=== PATIENT | male | born 1995 | race Caucasian/White ===

== ENCOUNTER 2024-10-03 01:47 | Emergency (ER) | payer OTHER, SELFPAY ==
[2024-10-03] VITALS (22 sets, daily range): BP systolic 110–146; BP diastolic 72–99; BMI 33.3
--- NOTE | 2024-10-03 02:23 | ED.GENMED ---
History of Present Illness
General
Chief Complaint: Substance Abuse
Source: patient
Exam Limitations: clinical condition
Time Seen by Provider: 10/03/24 01:59
Nursing documentation reviewed up to this point in time: agreed with
History of Present Illness
History of Present Illness:
29-year-old male brought in by EMS after doing fentanyl this evening. Found by his father in his bedroom unresponsive with a needle in his arm. Patient was arousable with painful stimuli. They called 911. Parents told EMS that patient is no
longer welcome in their home. Patient refused interventions from EMS. Upon arrival patient was somnolent but arousable to voice. Patient initially hesitant to consider rehab, 'stating that rehab does not work he has done it many times '
Past History
Past History
ED Past Medical History: GERD, Psychiatric (Anxiety/depression/substance abuse) and Other (Substance use disorder)
ED Past Surgical History: None
Social History
Tobacco: Smoker
Alcohol: None
Drug: Narcotics and IVDA
Personal: Single
Living: with family
Employment: Not employed
Family History
Family History: Other (Noncontributory)
Review of Systems
Review of Systems
Allergies reviewed?: Yes
All Other Systems: ROS reviewed and negative except as documented in HPI and ROS
Constitutional: Reports fatigue
EENT: Reports no symptoms
Respiratory: Reports no symptoms
Cardiac: Reports no symptoms
ABD/GI: Reports no symptoms
: Reports no symptoms
Musculoskeletal: Reports no symptoms
Skin: Reports no symptoms
Neurological: Reports no symptoms
Endocrine: Reports no symptoms
Hematologic/Lymphatic: Reports no symptoms
Psychiatric: Reports anxiety
Phy Exam
General Physical Exam
General Presentation: well appearing and no apparent distress
General age: appears older than age
General Skin: warm and dry
General Habitus: normal
General Mental: appears intoxicated
General Hydration: appears well hydrated
ENT Exam
ENT Exam: EOMI, pharynx normal, neck supple and normocephalic
Eye Exam
Eye Exam: PERRL, cornea clear and conjunctiva normal
Cardiovascular Exam
Cardiovascular Exam: regular rate/rhythm, no edema, no murmur and normal peripheral pulses
Pulmonary Exam
Pulmonary Exam: lungs clear, no respiratory distress, no rales, no crackles, no rhonchi, no stridor, no wheezing and no cough
Gastrointestinal Exam
Gastrointestinal Exam: normal bowel sounds, non tender, soft, no organomegaly, no pulsatile mass and non distended
Neurological Exam
Neurological Exam: alert, oriented x3, no motor deficits and speech normal
Musculoskeletal Exam
Musculoskeletal Exam: full ROM and no edema
Skin Exam
Skin Exam: normal color, warm/dry, no rash and no petechia
Psychiatric Exam
Psychiatric Exam: normal mood/affect
Course
Orders/Labs/Results
Orders:
Orders
10/03/24 02:32
0.9% Sodium Chloride 1000 ml [Nss] 1,000 ml IV BOLUS
10/03/24 03:00
CMP [Comprehensive Metabolic Panel] Urgent
Complete Blood Count/With Diff Urgent
Abnormal Lab Results
10/03/24
03:00
MPV 10.5 H fL
(7.4-10.4)
Abs Immat Gran (auto) 0.1 H 10^3/uL
(0-0.05)
Immature Gran % 0.6 H %
(0-0.5)
Lymphocytes % 17.8 L %
(20.5-51.1)
Glucose 105 H mg/dl
(70-99)
10/03/24 03:00
10/03/24 03:00
Vital Signs
Initial and Last Documented VS:
Initial Vital Signs
BP
136/91
10/03/24 01:51
Last Documented Vital Signs
Temp Pulse Resp BP Pulse Ox
98.3 F 48 12 110/90 99
10/03/24 01:53 10/03/24 04:00 10/03/24 04:00 10/03/24 04:00 10/03/24 04:00
*Critical Care Note
Total Time (30-74mins, 75-104mins- exclusive of procedures): Not Applicable
Update Note
Update Note:
10/03/2024 0246 AM: Patient currently being seen by Flaco.
ED Attending Note
-
Portions of this chart may have been created with voice recognition software.� Occasional wrong word or��sound alike� substitutions may have occurred due to the inherent limitations of voice recognition software.
Discharge Plan
Departure
Patient Disposition: Acute Rehab Facility
Date of Disposition: 10/03/24
Time of Disposition: 04:40
Discharge Problem:
Active substance abuse
Prescriptions:
No Action
No Current Medications
0
Referrals:
UNKNOWN - PT DOES,NOT KNOW [Family Provider] -
Alvarado,Sandy [Active] -
Activity Restrictions/Additional Instructions:
It was a pleasure meeting you and taking part in your care. We hope for your continued healing and wellness.
Please read discharge instructions in their entirety. However, they are for general education and may not describe your exact diagnosis at discharge. Information on your ER visit and medical conditions were discussed with you along with appropriate
follow up information...
If indicated, please take your medications as instructed and indicated on discharge paperwork.
Please schedule a follow up appointment as directed. Call to schedule an appointment
Please return to the emergency department with ANY change in, persisting, or worsening of symptoms. If any of your symptoms do not improve, or persist, or become more severe within 6-12 hours, please return to the emergency department for further
care.
Please return to the emergency department if you develop a headache, neck pain/stiffness, fever greater than 100.4F, chest pain, shortness of breath, persistent nausea, vomiting, slurred speech, difficulty walking, numbness/tingling, weakness, signs
of infection or any other symptoms that are worrisome to you.
If you have any questions or concerns please do not hesitate to call the Hospital at or E-mail me directly at [email or web address]
Interventions
Interventions:
*Risk Screen - Suicide Last Done: 10/03/24 01:53
*General Assessment Last Done: 10/03/24 01:53
*Neglect/Abuse Screening Last Done: 10/03/24 01:53
ED- Fall Risk Assessment Last Done: 10/03/24 01:53
*ED COVID-19 Vaccine History Last Done: 10/03/24 01:53
ED-Psychological Assessment Last Done: 10/03/24 02:12
Discharge Date and Time
Print Language: SPANISH
[2024-10-03] MEDS: NSS 1000 IV (02:34)
[2024-10-03 03:25] LABS: % Basophils 0.4 % (0-2); % Eosinophils 2.6 % (0-6); % Immature Granulocytes 0.6 % (0-0.5); % Lymphocytes 17.8 % (20.5-51.1); % Monocytes 5.9 % (1.7-9.3); % Neutrophils 72.7 % (42.2-75.2); Absolute Eosinophils 0.2 10^3/uL (0-0.7); Absolute Immature Granulocytes 0.1 10^3/uL (0-0.05); Absolute Lymphocytes 1.6 10^3/uL (1.2-3.4); Absolute Monocytes 0.5 10^3/uL (0.1-0.6); Absolute Neutrophils 6.5 10^3/uL (1.4-6.5); Hematocrit 45.1 % (39.0-52.0); Hemoglobin 15.5 g/dL (13.0-18.0); Mean Corp Hgb Conc. 34.4 g/dL (33.0-37.0); Mean Corpuscular Hgb 29.6 pg (27.0-31.0); Mean Corpuscular Volume 86.2 fL (80.0-94.0); Mean Platelet Volume 10.5 fL (7.4-10.4); Nucleated Red Blood Cells % 0 % (-); Platelet Count 176 10^3/uL (130-400); Red Blood Cell Count 5.23 10^6/uL (4.70-6.10); Red Cell Dist. Width 12.8 % (11.5-14.5); White Blood Cell Count 8.9 10^3/uL (4.8-10.8)
[2024-10-03 03:50] LABS: ALT (SGPT) 25 U/L (0-50); AST (SGOT) 29 U/L (17-59); Albumin 4.8 g/dl (3.5-5.0); Alkaline Phosphatase 71 U/L (38-126); Blood Urea Nitrogen 20 mg/dl (9-20); Calcium 9.8 mg/dl (8.4-10.2); Carbon Dioxide 24 mmol/L (22-30); Chloride 102 mmol/L (98-107); Estimated Creatinine Clearance > 125 ml/min; Glucose 105 mg/dl (70-99); Potassium 4.6 mmol/L (3.5-5.1); Sodium 141 mmol/L (135-145); Total Bilirubin 0.3 mg/dl (0.2-1.3); Total Protein 7.8 g/dl (6.3-8.2); eGFR > 60.00
--- NOTE | 2024-10-03 09:02 | ED.GENMED ---
History of Present Illness
General
Chief Complaint: Substance Abuse
Time Seen by Provider: 10/03/24 01:59
Past History
Past History
ED Past Medical History: GERD, Psychiatric (Anxiety/depression/substance abuse) and Other (Substance use disorder)
ED Past Surgical History: None
Social History
Tobacco: Smoker
Alcohol: None
Drug: Narcotics and IVDA
Personal: Single
Living: with family
Employment: Not employed
Family History
Family History: Other (Noncontributory)
Course
Orders/Labs/Results
Orders:
Orders
10/03/24 02:32
0.9% Sodium Chloride 1000 ml [Nss] 1,000 ml IV BOLUS
10/03/24 03:00
CMP [Comprehensive Metabolic Panel] Urgent
Complete Blood Count/With Diff Urgent
Abnormal Lab Results
10/03/24
03:00
MPV 10.5 H fL
(7.4-10.4)
Abs Immat Gran (auto) 0.1 H 10^3/uL
(0-0.05)
Immature Gran % 0.6 H %
(0-0.5)
Lymphocytes % 17.8 L %
(20.5-51.1)
Glucose 105 H mg/dl
(70-99)
10/03/24 03:00
10/03/24 03:00
Vital Signs
Initial and Last Documented VS:
Initial Vital Signs
BP
136/91
10/03/24 01:51
Last Documented Vital Signs
Temp Pulse Resp BP Pulse Ox
97.6 F 70 14 137/90 97
10/03/24 07:31 10/03/24 07:31 10/03/24 07:31 10/03/24 07:31 10/03/24 07:31
Update Note
Update Note:
Patient seen by Imelda tompkins. Patient does not want inpatient care at this time. Services were provided to him by Imelda tompkins for outpatient management patient is agreeable. He does state he wants to get off of opiates and will follow-up. I will give him
a small starting dose of Suboxone. He has been on it before. I also encouraged him to return if withdrawal symptoms are too significant and to not return to use. Patient agrees. Will discharge with Narcan and short course of Suboxone
ED Attending Note
-
Portions of this chart may have been created with voice recognition software.� Occasional wrong word or��sound alike� substitutions may have occurred due to the inherent limitations of voice recognition software.
Discharge Plan
Departure
Patient Disposition: Home (Routine Discharge)
Date of Disposition: 10/03/24
Time of Disposition: 04:40
Patient with high blood pressure during this ER visit?: Yes
Discharge Problem:
Active substance abuse
Instructions: Drug Misuse and Addiction (DC), BLOOD PRESSURE
Prescriptions:
New
buprenorphine-naloxone [Suboxone] 4-1 mg film
1 film buccal BID Qty: 10 0RF
Rx Instructions:
ONLY START WHEN IN WITHDRAWAL
Referrals:
Sandy Childers [Active] -
UNKNOWN - PT DOES,NOT KNOW [Family Provider] -
Activity Restrictions/Additional Instructions:
It was a pleasure meeting you and taking part in your care. We hope for your continued healing and wellness.
Please read discharge instructions in their entirety. However, they are for general education and may not describe your exact diagnosis at discharge. Information on your ER visit and medical conditions were discussed with you along with appropriate
follow up information...
If indicated, please take your medications as instructed and indicated on discharge paperwork.
Please schedule a follow up appointment as directed. Call to schedule an appointment
Please return to the emergency department with ANY change in, persisting, or worsening of symptoms. If any of your symptoms do not improve, or persist, or become more severe within 6-12 hours, please return to the emergency department for further
care.
Please return to the emergency department if you develop a headache, neck pain/stiffness, fever greater than 100.4F, chest pain, shortness of breath, persistent nausea, vomiting, slurred speech, difficulty walking, numbness/tingling, weakness, signs
of infection or any other symptoms that are worrisome to you.
Please return if your withdrawal symptoms are not tolerable at home. Please do not use opiates. Please follow-up with outpatient treatment centers as given to you by Imelda tompkins
Interventions
Interventions:
*Risk Screen - Suicide Last Done: 10/03/24 01:53
*General Assessment Last Done: 10/03/24 01:53
*Neglect/Abuse Screening Last Done: 10/03/24 01:53
ED- Fall Risk Assessment Last Done: 10/03/24 01:53
*ED COVID-19 Vaccine History Last Done: 10/03/24 01:53
ED-Psychological Assessment Last Done: 10/03/24 02:12
Discharge Date and Time
Print Language: VIET[place]ESE
--- NOTE | 2024-10-04 09:51 | ED.ADDNOTE ---
ED Addendum
ED Addendum
ED Addendum Note:
Patient seen by Imelda tompkins. Patient does not want inpatient care at this time. Services were provided to him by Imelda tompkins for outpatient management patient is agreeable. He does state he wants to get off of opiates and will follow-up. I will give him
a small starting dose of Suboxone. He has been on it before. I also encouraged him to return if withdrawal symptoms are too significant and to not return to use. Patient agrees. Will discharge with Narcan and short course of Suboxone
== END 2024-10-03 09:37 | disposition home or self-care (01) ==
LOC: EMR 01:47
PROVIDERS: EMERGENCY PHYSICIAN Student in an Organized Health Care Education/Training Program
DX: F19.10 Other psychoactive substance abuse, uncomplicated (principal); F17.200 Nicotine dependence, unspecified, uncomplicated
CPT/HCPCS: 99285; 96360; 80053; 85025

== ENCOUNTER 2025-04-26 23:30 | Inpatient (IN) | payer OTHER, SELFPAY ==
[2025-04-26 20:19] VITALS: BP 139/85
[2025-04-26 21:19] VITALS: BP 132/79
[2025-04-26 21:52] VITALS: BP 173/97
[2025-04-26 21:55] LABS: % Basophils 0.4 % (0-2); % Eosinophils 2.3 % (0-6); % Immature Granulocytes 0.3 % (0-0.5); % Lymphocytes 11.2 % (20.5-51.1); % Monocytes 6.8 % (1.7-9.3); Absolute Eosinophils 0.2 10^3/uL (0-0.7); Absolute Lymphocytes 1.1 10^3/uL (1.2-3.4); Absolute Monocytes 0.7 10^3/uL (0.1-0.6); Hematocrit 36.8 % (39.0-52.0); Hemoglobin 12.5 g/dL (13.0-18.0); Mean Corpuscular Hgb 28.7 pg (27.0-31.0); Mean Corpuscular Volume 84.6 fL (80.0-94.0); Mean Platelet Volume 9.2 fL (7.4-10.4); Nucleated Red Blood Cells % 0 % (-); Platelet Count 293 10^3/uL (130-400); Red Blood Cell Count 4.35 10^6/uL (4.70-6.10); Red Cell Dist. Width 12.3 % (11.5-14.5); White Blood Cell Count 10.1 10^3/uL (4.8-10.8)
[2025-04-26 22:00] VITALS: BP 161/98
[2025-04-26 22:07] LABS: Lactic Acid 1.1 mmol/L (0.7-2.0)
[2025-04-26 22:09] LABS: ALT (SGPT) 14 U/L (0-50); AST (SGOT) 18 U/L (17-59); Albumin 4.3 g/dl (3.5-5.0); Alkaline Phosphatase 82 U/L (38-126); Blood Urea Nitrogen 16 mg/dl (9-20); Calcium 9.2 mg/dl (8.4-10.2); Carbon Dioxide 27 mmol/L (22-30); Chloride 104 mmol/L (98-107); Estimated Creatinine Clearance > 125 ml/min; Glucose 136 mg/dl (70-99); Potassium 4.3 mmol/L (3.5-5.1); Sodium 141 mmol/L (135-145); Total Bilirubin 0.7 mg/dl (0.2-1.3); Total Protein 7.7 g/dl (6.3-8.2); eGFR > 60.00
[2025-04-26] MEDS: VANCOCIN 540 MG IV (22:20)
--- NOTE | 2025-04-26 22:35 | ED.GENMED ---
History of Present Illness
General
Chief Complaint: Skin Problem
Source: patient
Time Seen by Provider: 04/26/25 20:39
History of Present Illness
History of Present Illness:
Note:
CHIEF COMPLAINT(S)
Leg pain and vomiting.
HISTORY OF PRESENT ILLNESS
The patient is a 30-year-old male with a history of drug use, presenting with significant leg pain and skin lesions on both legs. He reports that the lesions, which began as scabs following intravenous drug use in his legs, have been present for the
past two weeks and are associated with swelling and pain. He describes worsening symptoms over the last two days, noting blisters and yellow seepage from the lesions. The patient denies experiencing fever. The patient also reports a history of
consistent vomiting, primarily bile, occurring daily over the past month to month and a half, accompanied by nausea.
The patient has a long history of substance use disorder, particularly opioid use, for over ten years with multiple attempts at rehabilitation. He has achieved up to 18 months of sobriety in the past but relapsed following exposure to
substance-using friends and stressful life events, such as the of a loved one. The patient expresses a desire to pursue sobriety and inquires about rehabilitation options, including long-term treatment. The patient reports using fentanyl and
denies the use of alcohol or other substances currently.
SOCIAL DETERMINANTS AFFECTING HEALTH
The patient has a history of substance use and has experienced relapses due to social influences and traumatic life events. Financial stress is implied by the discussion of drug funding, with a mention of family providing financial support for drugs
in an effort to prevent worse outcomes. The patient describes difficulties in accessing rehabilitation treatment due to insurance issues and dissatisfaction with past care experiences.
REVIEW OF SYSTEMS
- Skin: Painful lesions on bilateral lower extremities with yellow discharge.
- Gastrointestinal: Prolonged vomiting and nausea, with emesis predominantly consisting of bile.
- Neurological: Denies focal motor deficits.
- Respiratory: Denies respiratory distress.
PHYSICAL EXAM
- General: The patient is awake, alert, and oriented.
- Skin: Generalized swelling of bilateral hands with track marrero on hands and forearms. Necrotic lesions with diffuse swelling on the bilateral anterior lower legs, surrounded by redness and erythema, and yellow seepage. Extremities warm and
well-perfused.
- Cardiovascular: No audible murmurs, heart sounds regular.
- Respiratory: Lungs are clear upon auscultation.
- Neurological: No focal motor deficits noted.
Nursing notes reviewed and vital signs reviewed.
PROBLEM LIST
Acute Problems:
- Infectious skin lesions on lower extremities possibly secondary to intravenous drug use.
- Nausea and vomiting for over a month.
Chronic Problems:
- Opioid use disorder for over ten years.
PLAN
- Initiate laboratory studies and attempt to secure IV access, possibly requiring an ultrasound-guided approach due to difficulty with access.
- Consider inpatient admission for intravenous antibiotics due to the appearance of skin infections and pending laboratory results.
- Discuss rehabilitation options for substance use disorder, emphasizing the importance of long-term treatment plans and exploring possible insurance coverage issues.
- Address skin care with potential topical or systemic treatment options.
DIFFERENTIAL DIAGNOSIS
The Differential Diagnosis includes, in no particular order and is not limited to:
- Skin infection (cellulitis)
- Necrotizing fasciitis
- Venous insufficiency wounds
- Drug-related skin necrosis
- Gastroenteritis
- Peptic ulcer disease
- Withdrawal symptoms
- Sepsis
- Endocarditis
- Hepatic dysfunction
Disposition:
DIAGNOSIS
- Infection of lower limb (ICD-10: L03.115)
- Opioid use disorder (ICD-10: F11.20)
SUMMARY OF ENCOUNTER
The patient is a 30-year-old male with active intravenous drug use, presenting with significant leg pain and necrotic lesions on both legs, surrounded by redness and drainage. Labs were reviewed showing normal white blood cell count and chemistries,
but hemoglobin was at 12.5, lower than his baseline of 15. The patient was diagnosed with cellulitis.
CONSIDERATION FOR ADMISSION
Given the skin infection and potential for withdrawal symptoms, there was consideration for inpatient admission for intravenous antibiotic therapy and management of likely impending withdrawal.
ASSESSMENT
The patient presents with symptoms indicating cellulitis, likely secondary to IV drug use, accompanied by systemic complications from opioid use disorder.
PLAN
- Administer IV antibiotics for cellulitis.
- Send wound culture.
- Initiate wound care management.
- Admit for management of likely impending opioid withdrawal.
INDEPENDENT INTERPRETATION OF TESTS
- My independent interpretation of CBC shows a normal white blood cell count.
- My independent interpretation of CBC indicates hemoglobin is 12.5, which is lower than his baseline of 15.
- My independent interpretation of CMP shows normal chemistries.
MEDICAL DECISION MAKING
Number and Complexity of Problems Addressed: The patient presented with acute skin infection potentially complicated by opioid withdrawal, and ongoing opioid use disorder.
Data: Reviewed the lab results which included a normal white blood cell count, hemoglobin of 12.5 (below baseline), and normal chemistries. The results were significant in deciding the necessity for IV antibiotics and potential admission.
Risk: The risk in this case involved potential infection progression and withdrawal symptoms complicated by active intravenous drug use, requiring consideration for hospitalization and inpatient management. Social determinants such as substance
abuse and potential for withdrawal were flaherty factors in planning his care.
Past History
Past History
ED Past Medical History: GERD, Psychiatric (Anxiety/depression/substance abuse) and Other (Substance use disorder)
ED Past Surgical History: None
Social History
Tobacco: Smoker
Alcohol: None
Drug: Narcotics and IVDA
Personal: Single
Living: with family
Employment: Not employed
Family History
Family History: Other (Noncontributory)
Phy Exam
Physical Exam
Physical Exam:
.
Course
Orders/Labs/Results
Orders:
Orders
04/26/25 21:10
Vancomycin [Vancocin] 2,000 mg 0.9% Sodium Chloride 500 ml [Nss] 500 ml IV NOW
04/26/25 21:43
Complete Blood Count/With Diff Urgent
Comprehensive Metabolic Panel Urgent
Lactic Acid Q4H
Comment: CANCEL 2nd LACTIC ACID IF 1st LACTIC ACID IS LESS THAN 2
Blood Culture Q30M
EZRA Source: Blood/Venous
Specimen Description:
Blood Culture Q30M
EZRA Source: Blood/Venous
Specimen Description:
04/26/25 22:55
Buprenorphine HCl [Belbuca] 300 mcg BUCCAL ONCE STA
Morphine Sulfate 4 mg IV NOW STA
04/26/25 23:00
Flush (0.9% Sodium Chloride) [Flush (Nss)] See Dose Instructions IV PER PROTOCOL
04/26/25 23:06
Admit/Transfer Patient As Directed
Co-Sign Provider:
Level of Care: Inpatient admission
Assign to:: IMU- Intermediate Care
Physician / Group: Jil
Diagnosis: Cellulitis, opioid dependence
Reason for Hospitalization: Cellulitis
Expected length of stay greater than two midnights?: Yes
ELOS- Estimated Length of Stay in days: 2
I certify the patient meets the requirements for IP care: Yes
PRN Pain Medication Management As Directed
May give lesser potent ordered pain med per pt: Yes
preference::
Protocol:: Medication orders for pain may be administered in a
manner that supports deferring to patient preference
when the pt is:
- Requesting an ordered lesser potent pain medication.
Least to most potent pain medications are defined
as: acetaminophen < NSAID < tramadol < opioids
(morphine, oxycodone, hydromorphone).
- Requesting a lesser dose of the same medication IF
ORDERED.
- Requesting a less intrusive route of administration
if both routes are prescribed by the provider (PO <
IV).
04/27/25 01:15
Lactic Acid Q4H
Comment: CANCEL 2nd LACTIC ACID IF 1st LACTIC ACID IS LESS THAN 2
04/27/25 02:30
US Periph Venous LOWER Ext Ld Urgent
Reason For Exam: swelling and redness, IV drug injections, eval DVT
Abnormal Lab Results
04/26/25
21:43
RBC 4.35 L 10^6/uL
(4.70-6.10)
Hgb 12.5 L g/dL
(13.0-18.0)
Hct 36.8 L %
(39.0-52.0)
Absolute Neuts (auto) 8.0 H 10^3/uL
(1.4-6.5)
Absolute Lymphs (auto) 1.1 L 10^3/uL
(1.2-3.4)
Absolute Monos (auto) 0.7 H 10^3/uL
(0.1-0.6)
Neutrophils % 79.0 H %
(42.2-75.2)
Lymphocytes % 11.2 L %
(20.5-51.1)
Glucose 136 H mg/dl
(70-99)
04/26/25 21:43
04/26/25 21:43
Vital Signs
Initial and Last Documented VS:
Initial Vital Signs
Temp Pulse Resp BP Pulse Ox
98.7 F 77 18 139/85 100
04/26/25 20:19 04/26/25 20:19 04/26/25 20:19 04/26/25 20:19 04/26/25 20:19
Last Documented Vital Signs
Temp Pulse Resp BP Pulse Ox
98.7 F 125 25 154/86 99
04/26/25 20:19 04/27/25 00:00 04/27/25 00:00 04/27/25 00:00 04/27/25 00:00
*Pulse Oximetry
Patient hypoxic: no
Comment: 98%
*Critical Care Note
Total Time (30-74mins, 75-104mins- exclusive of procedures): Not Applicable
ED Attending Note
-
Portions of this chart may have been created with voice recognition software.� Occasional wrong word or��sound alike� substitutions may have occurred due to the inherent limitations of voice recognition software.
Discharge Plan
Departure
Patient Disposition: Admit
Date of Disposition: 04/26/25
Time of Disposition: 22:37
Admit to: Med/Surg
Presentation/result/management discussed w/ accepting MD/DO: Hospitalist
Discharge Problem:
Bilateral lower leg cellulitis, IVDA, necrotic leg wounds
Interventions
Interventions:
*Risk Screen - Suicide Last Done: 04/26/25 20:22
*General Assessment Last Done: 04/26/25 20:22
*Neglect/Abuse Screening Last Done: 04/26/25 21:22
*ED- Fall Risk Assessment Last Done: 04/26/25 21:16
*ED COVID-19 Vaccine History Last Done: 04/26/25 20:22
ED-Skin Assessment Last Done: 04/26/25 21:16
--- NOTE | 2025-04-26 22:57 | HPS.HSE ---
Family Physician
-
Family Physician: Marla Nash PA-C
Chief Complaint
-
Bilateral lower extremity swelling and tenderness
History of Present Illness
This is a 30-year-old male with past medical history significant for IV drug abuse presenting to the emergency department with worsening bilateral lower extremity pain tenderness and redness as well as swelling that started about 2 to 3 days ago.
Patient reports injecting directly into his lower extremities. He says he does have multiple ulcers and lesions in lower extremities including tach and legs for several weeks. His most recent injection was today. He is developing some eschar
around his legs. Over the last 2 days he noticed significant worsening of his pain. Parents reports that he has had these lesions for several weeks now. Patient himself denies fevers or chills. He only reports a worsening tenderness.
Patient reports that he uses about 30 bags of fentanyl daily. He also uses strength. He states that the tests supplies for xylazine and he has had them in the past. His last use of fentanyl was this morning.
In the emergency department he was afebrile, blood pressure was 130/80 with a pulse of 130 and satting 100% on room air. CBC was unremarkable with white count of 10.7 hemoglobin 12.5 and platelet count of 293. Electrolytes were normal, BUN and
creatinine were normal.
Medical History
Past Medical History
Past Medical History: Reports Other
Additional Past Medical History:
IV drug use
Past Surgical History: Reports None
Social History
Tobacco: Smoker
Alcohol: None
Drug: IVDA
Personal: Single
Living: With Family
Family History
Family History: Not pertinent
Allergies / Home Medications
Allergies reflects when Allergies were last updated in [facility].
Home Medications with original date entered in [facility]
Allergy/Medication List:
Allergies
Allergy/AdvReac Type Severity Reaction Status Date / Time
No Known Allergies Allergy Verified 04/26/25 20:24
Home Medications
buprenorphine 4 mg-naloxone 1 mg sublingual film (Suboxone) 1 film buccal BID #10 ea 10/03/24
Review of Systems
-
Constitutional: Reports No Symptoms
EENT: Reports No Symptoms
Respiratory: Reports No Symptoms
Cardiac: Reports No Symptoms
Abdomen/GI: Reports No Symptoms
: Reports No Symptoms
Musculoskeletal: Reports No Symptoms
Skin: Reports See HPI
Neurological: Reports No Symptoms
Endocrine: Reports No Symptoms
Hematologic/Lymphatic: Reports No Symptoms
Psych: Reports No Symptoms
Physical Exam
Vital Signs
Vital Signs
Temp Pulse Resp BP Pulse Ox
98.7 F 77 18 132/79 100
04/26/25 20:19 04/26/25 20:19 04/26/25 20:19 04/26/25 21:19 04/26/25 20:19
Physical Exam
General: Well Developed, Well Nourished and Appears in Distress
HEENT: NormoCephalic, Anicteric, Moist mucous membranes and Atraumatic
Respiratory: Clear
Cardiac: S1/S2 and Tachycardia
Breast: Deferred by me
GI: Soft, Non Tender, Non Distended and Normal Bowel Sounds
Rectal: Deferred by Provider
Genito-urinary: Deferred by me
Musculoskeletal: No Clubbing, No Cyanosis, Edema, Left Lower Extremity and Edema, Right Lower Extremity
Skin: Rash and Ulcers (Bilateral lower extremity necrotic lesions with surrounding erythema and tenderness. Worse on the left. )
Neuro: AO x 3 and Nonfocal/grossly intact
Hematologic/Lymphatic: No Lymphadenopathy
Psych: Anxious
Laboratory Results
-
04/26/25 21:43
04/26/25 21:43
Laboratory Results
Lactic Acid 1.1 mmol/L (0.7-2.0) 04/26/25 21:43
Total Bilirubin 0.7 mg/dl (0.2-1.3) 04/26/25 21:43
AST 18 U/L (17-59) 04/26/25 21:43
ALT 14 U/L (0-50) 04/26/25 21:43
Alkaline Phosphatase 82 U/L (38-126) 04/26/25 21:43
Data Reviewed
-
Lab Data: Labs Reviewed by me
Old Records: Reviewed
Impression/Plan
-
IMPRESSION:
30 y.o chronic IVDA who presents with multiple injection site wounds in the lower extremities complicated by cellulitis. He is afebrile here and hemodynamically stable.
PLAN:
Cellulitis - Injection site infection with necrotic skin ulcerations likely reflect parenteral use of xylazine with fentanyl.
- admit to IMU (withdrawal)
- blood cultures sent
- IV vancomycin for now
- rule out DVTs
- pain control
- wound care consult
Opioid withdrawal - Opioid/Xylazine abuse. Going into withdrawal. Last use this am < 72 hours ago.
- will start microdosing protocol
- given IV morphine and 1 dose of [place] stat
- buprenorphine microdosing protocol with adjunct medication support
- high risk and may need dexmedetomidine infusion if withdrawal worsenes
- the warm handoff hotline was not accessible but patient is agreeable to rehab, call in am
DVT PPX - lovenox sq
Code status - Full Code
[2025-04-26 23:00] VITALS: BP 156/87
[2025-04-26] MEDS: MORPHINE SULFATE 4 MG IV (23:11)
[2025-04-26] MEDS: FLUSH (NSS) 1 FLUSH IV (23:13)
[2025-04-26] MEDS: BELBUCA 300 MCG BUCCAL (23:15)
[2025-04-26] MEDS: BENADRYL 25 MG IV (23:53)
[2025-04-26] MEDS: NSS 1000 IV (23:57)
[2025-04-26] MEDS: ZOFRAN 4 MG IV (23:59)
[2025-04-27] VITALS (31 sets, daily range): BP systolic 110–174; BP diastolic 56–98; BMI 31.6
[2025-04-27] MEDS: DILAUDID 1 MG IV (01:09)
[2025-04-27] MEDS: ZOFRAN 4 MG IV ×3 (03:17→17:55)
[2025-04-27] MEDS: BELBUCA 300 MCG BUCCAL ×5 (03:17→20:42)
[2025-04-27] MEDS: OXYCONTIN (CONTROLLED RELEASE) 40 MG PO ×3 (03:17→16:25)
[2025-04-27] MEDS: CATAPRES 0.1 MG PO ×2 (03:17→09:45)
[2025-04-27 04:14] LABS: Amphetamines Negative (Negative); Barbiturates Negative (Negative); Benzodiazepines Negative (Negative); Buprenorphine Negative (Negative); Cocaine Negative (Negative); Marijuana Negative (Negative); Methadone Negative (Negative); Methamphetamines Negative (Negative); Opiates Positive (Negative); Phencyclidine Negative (Negative); Tricyclic Antidepressants Negative (Negative)
[2025-04-27 04:21] LABS: Fentanyl, Urine Positive (Negative)
[2025-04-27] MEDS: ATARAX 50 MG PO ×3 (05:45→23:30)
[2025-04-27] MEDS: ZANAFLEX 2 MG PO ×3 (05:45→17:55)
[2025-04-27] MEDS: ROXICODONE 20 MG PO ×3 (05:45→20:47)
[2025-04-27] MEDS: ANCEF 10 IV ×3 (05:59→22:16)
[2025-04-27 06:04] LABS: ALT (SGPT) 14 U/L (0-50); AST (SGOT) 20 U/L (17-59); Albumin 3.8 g/dl (3.5-5.0); Alcohol None Detected; Alkaline Phosphatase 106 U/L (38-126); Direct Bilirubin 0.3 mg/dl (0.0-0.4); Total Bilirubin 1.2 mg/dl (0.2-1.3); Total Protein 6.9 g/dl (6.3-8.2)
--- NOTE | 2025-04-27 06:26 | PTCARENOTE ---
Received patient from the ED overnight. Cows q4h. PRN clonidine, atarax, zofran, roxicodone given without any relief. Continues with emesis at times. B/L LE wounds open to air with no drainage. Patient prefers legs to be uncovered.
[2025-04-27] MEDS: TORADOL 10 MG IV ×2 (07:54→14:36)
[2025-04-27] MEDS: COMPAZINE 5 MG IV ×3 (08:09→22:01)
[2025-04-27 08:37] LABS: Magnesium 1.7 mg/dl (1.6-2.3)
[2025-04-27] MEDS: OXYCONTIN (CONTROLLED RELEASE) PO ×2 (08:46→16:04)
--- NOTE | 2025-04-27 08:55 | PTCARENOTE ---
Patient received from scene shifter. Patient in bed appearing to be calm but does have moments of agitation and restlessness. Patient is pleasant and agreeable to treatment plan. Patient with complaints of pain in B/L legs and stomach. Compazine
ordered in addition to Zofran due to increased nausea, appears to have worked. Wound care to see patient today due to multiple wounds on legs likely due to drug use. No testing scheduled at this time. Call duval in reach.
--- NOTE | 2025-04-27 09:22 | WOUNDNOTE ---
[facility] RN note: Patient admitted with cellulitis, opioid dependence. Patient interested in rehab.
See H&P for complete history.
PMH: IV drug use, injects in legs, smoker.
Wound Location and type/assessment: Patient admitted with: scattered thigh dry eschars/scabs, LE eschars and purple ecchymotic ulcers suspect will evolve to eschar. +Pedal pulses.
Appetite: poor.
Pressure redistribution devices in place: Centrella Max air bed. Patient turns self in bed.
Plan: Dressings applied Le's. Elevated heels off bed with pillow. Reviewed local wound care with patient.
Will confirm orders with Dr. Damico and discussed with RN Tree.
Care plan to be updated and will follow as needed.
Note to case management requested for discharge: Drug rehab that accepts patient with wounds.
Recommend follow up at wound care center upon discharge.
[2025-04-27] MEDS: BENADRYL 50 MG PO (10:30)
--- NOTE | 2025-04-27 10:50 | W.PN.HOSP.TC ---
Addendum entered and electronically signed by Lencho Damico MD 04/28/25 10:08:
Correction Pt on Ancef and not Vanco
' Inject Cellasene and fentanyl' Should read as ' Injects Xylazine and fentanyl'
Original Note:
Today's Communication/Plan
-
IV AB
Precedex gtt
Buprenorphine micro dosing protocol with supportive medicines for withdrawal
[facility] [place]
Assessment / Plan
Assessment / Plan
30-year-old with lower extremity edema and pain. Patient reports injecting drugs into his lower extremities he has multiple ulcers. He also uses 30 bags of fentanyl daily he is also using xylazine. Started Oxycodone when he was in high school and
started using injectable drugs when he was 18 . He has had a sober period in 2017 after he completed 6 months at [facility] (That place is now closed) . He was sober For a year and a half and then relapsed. He has been to 27 and was
recently at [facility] in September . First over dose in 2014 [facility], he was in a coma per mom. When he relapsed for Soberity he used and haad a Cardiac arrest , treated at [facility] . Was on a hypothermia protocol as well per
mom.
He uses several bags of fentanyl every day and also xylazine. He states that he injects anywhere he can find a vein. No fevers reported. He doesn't have a job.
He Lives with mom and has state insurance.
# Cellulitis-skin necrosis secondary to ulcerations from drug use
Inject Cellasene and fentanyl
Blood cultures sent
Continue vancomycin
Wound care evaluation
ID consult
# Opiate withdrawal syndrome
Started on microdosing protocol for buprenorphine
Continue Zanaflex and clonidine as needed.
# ADHD as a child.
# Short Stature needed Growth Hormone injection as a child.
# Smoker- Cessation Counselling.
# Hearing impairment B/L per mom
# DVT prophylaxis-Lovenox
# Full code
Discussed with nursing
Discussed with mom in detail regarding lower extremity ulcers. Discussed that ulcers are necrotic and can start to get or look worse depending upon how bad the necrosis is. For his withdrawal symptoms we will transfer him to ICU for Precedex drip.
Discussed with ICU attending
Time spent over 50 min
Part of this note was created using voice recognition system. Occasional wrong word or��sound alike� substitutions may have inadvertently occurred due to the inherent limitations of voice recognition software. If noted kindly bring it to my
attention for correction.
Anticipated Discharge: > 48 hours
Subjective/Interval History
-
Date of Service: April 27, 2025
Objective Data
-
Labs:
Laboratory Results
04/27/25
05:19
Total Bilirubin 1.2
AST 20
ALT 14
Alkaline Phosphatase 106
Vital Signs:
Vital Signs
Temp Pulse Resp BP Pulse Ox
99.6 F 114 18 151/62 98
04/27/25 07:55 04/27/25 09:45 04/27/25 06:00 04/27/25 09:45 04/27/25 06:00
I&O
04/26/25 04/27/25 04/28/25
06:59 06:59 06:59
Output Total 300 / 300
Balance -300 / -300
--- NOTE | 2025-04-27 11:58 | PTCARENOTE ---
Patient with worsening withdraw symptoms, transfer to ICU for Precedex and closer monitoring.
[2025-04-27] MEDS: NICODERM TRANSDERMAL 14 MG TRANSDERM (12:07)
--- NOTE | 2025-04-27 12:34 | CM ---
Patient with Hx cellulitis -skin necrosis secondary to ulcerations from drug use, Opiate withdrawal syndrome. Room air. Receiving Subutex, buprenorphine, IV Abx. Seen by wound care nurse. Plan transfer to ICU for Precedex gtt.
Met with patient who resides with his mother in a 2 story house.
He was independent in ADLs and ambulation.
The patient has no DME or prior VN.
PCP - Marla Nash
Pharmacy - [facility]
CM Consult: Substance Abuse
Patient states he has been to numerous Drug Rehab programs in the past: [address], [facility], [place], [facility], [place], & some Inpt programs in the [facility] (cannot remember names).
He states he was not taking suboxone prior to admission.
He is receptive to speaking with [facility] and wants to do an Inpatient Drug Rehab program.
Referral to [facility].
Plan follow patient's wound care needs.
Plan follow up after seen by [facility].
--- NOTE | 2025-04-27 12:35 | PTCARENOTE ---
Patient upgraded to ICU from IMU d/t concerns of worsening withdrawals and potential Precedex drip initiation , A&Ox4, can follow commands, complained feeling anxious and B/L LE pain, on RA, clear lung sounds, NSR to ST at 90s to 130s, BP stable,
GI/ continent, B/L LE wounds dressings intact.
--- NOTE | 2025-04-27 12:45 | PTCARENOTE ---
Report called to R[facility]. Patient transferred to ICU with all known belongings.
[2025-04-27] MEDS: MAGNESIUM SULFATE 102 GRAMS IV (12:52)
--- NOTE | 2025-04-27 12:53 | CON.ID ---
Consultation
-
Date/Time Consultation Requested: April 27, 2025 0958
Date/Time Consultation Performed: April 27, 2025 1255
Requesting Provider: Dr. Lencho Damico
Performing Provider: Dr. Chitra Light
Reason for Consultation: IV drug user with wounds
Chief Complaint / Past History
Chief Complaint
Painful leg wounds
History of Present Illness
30-year-old male with longstanding history of IV drug use who presents to the hospital on April 26 due to onset of bilateral lower extremity wounds. He mixes fentanyl with Xylocaine and inject drugs to multiple parts of his body. He uses about 30
pads a day. 2 to 3 days ago, he noted injection sites on both legs turned black. Lesions are painful. He therefore came to the ER. Had low-grade temp of 100.2. He received vancomycin in the ER but developed mild rash. He is currently on
cefazolin. He is not experiencing drug withdrawal and has been moved to ICU. No fevers or chills. He denies sharing needles. He uses clean needles from a packet.
Past History
Additional Past Medical History:
IVDU
Allergy History:
vancomycin Allergy (Mild, Verified 04/27/25 02:44)
Rash
Medications Reviewed: Yes
Current Antibiotics:
cefazolin
Social History
Tobacco: Smoker
Alcohol: None
Drug: IVDA (fentanyl/Xylazine)
Personal: Single
Living: With Family
Family History
Family History: Not Pertinent
Review of Systems
Review of Systems
General: Negative Fever, Chills or Change in Appetite
HEENT: Negative Sinus Problems
Respiratory: Negative Dyspnea or Cough
Gasteroenterology: Negative Diarrhea
Genital / Urological: Negative Dysuria or Flank Pain
Endocrine: Negative Weakness
Skin / Hair / Nails: Lesions
All systems: All other systems were reviewed and were negative
Vital Signs
Temp Pulse Resp BP Pulse Ox
99.0 F 114 18 151/62 94
04/27/25 11:00 04/27/25 09:45 04/27/25 06:00 04/27/25 09:45 04/27/25 11:44
Physical Exam
Physical Exam
Constitutional: Non-toxic
Head: Other (No frontal or max or sinus tenderness)
Eyes: No Conjunctival Hemorrhage and Sclera Anicteric
Cardiovascular: Other (Tachycardic)
Pulmonary: Clear
Gastrointestinal: Soft, Non Tender, Non Distended and Normal Bowel Sounds
Extremities: Negative Edema
Wound: Other (Bilateral lower extremities: Multiple soft tissue lesions with eschar/necrosis largest on both anterior shins left greater than right)
Neurological: AO x 3 and Tremors
Lab / Diagnostic Study Results
04/26/25 21:43
04/26/25 21:43
Abs Immat Gran (auto) 0.0 10^3/uL (0-0.05) 04/26/25 21:43
Absolute Neuts (auto) 8.0 10^3/uL (1.4-6.5) H 04/26/25 21:43
Absolute Lymphs (auto) 1.1 10^3/uL (1.2-3.4) L 04/26/25 21:43
Absolute Monos (auto) 0.7 10^3/uL (0.1-0.6) H 04/26/25 21:43
Absolute Basos (auto) 0.0 10^3/uL (0-0.2) 04/26/25 21:43
Immature Gran % 0.3 % (0-0.5) 04/26/25 21:43
Neutrophils % 79.0 % (42.2-75.2) H 04/26/25 21:43
Lymphocytes % 11.2 % (20.5-51.1) L 04/26/25 21:43
Monocytes % 6.8 % (1.7-9.3) 04/26/25 21:43
Eosinophils % 2.3 % (0-6) 04/26/25 21:43
Basophils % 0.4 % (0-2) 04/26/25 21:43
Lactic Acid Cancelled 04/27/25 01:15
Microbiology Results
Micro:
04/27/25 03:08 MRSA Screen - Pending
Nose
04/26/25 21:43 Blood Culture - Pending
Blood/Venous
04/26/25 21:43 Blood Culture - Pending
Blood/Venous
Assessment / Plan
# BLE soft tissue necrotic wounds from Xylocaine inj
# IVDU withdrawal
- Await blood cx's. If neg, dc abx
- Pt agreeable to HIV and Hep C screen.
--- NOTE | 2025-04-27 13:05 | CON.INTV ---
Consultation
Consultation Request
Date/Time Consultation Requested: 04/27/2025
Date/Time Consultation Performed: 04/27/2025
Requesting Provider: Dr. Damico
Performing Provider: Dr. Pruitt
Reason for Consultation: Fentanyl withdrawal
Medical History
-
Chief Complaint: Swollen legs following IV drug use
History of Present Illness:
30-year-old male with a past medical history of ADHD, tobacco use and IV drug use who presents with painful lower extremities with swelling for 3 days. Patient injects fentanyl + Tranq daily, he says 30 bags a day, and usually injects into his
lower extremities. He says that he has been having worsening pain in his legs although has had no fevers or chills. His left leg is tender to touch more than the right side. He tests his fentanyl himself and knows how to dilute it to help lower
the xylazine content. He last used IV drugs 1 day prior to arrival. He has been on suffocate in the past in addition to Vivitrol however he says he OD'd on the Vivitrol shot. Patient was afebrile in the ER to 98.7 �F, pulse rate 77, respiratory
rate 18, BP 139/85 and saturating 100% on room air. Labs showed normal WBC at 10.1, Hb 12.5, UDS positive for opiates + fentanyl, and alcohol level negative. Blood cultures collected, and he was given buprenorphine 300 mcg, 4 mg morphine + IV
vancomycin. He was admitted to the IMU for further care. Today, the patient's withdrawal symptoms worsened with increasing shakiness and tachycardia. Patient now being transferred to the ICU for consideration of Precedex drip. Director Medical Writing
services consulted for additional management/recommendations.
When I saw the patient, he was resting in bed, appearing uncomfortable and having occasional chills/shakes. Current heart rate 109, BP 151/68 and saturating 95% on room air. He feels nauseous, achy, although denies chest pain or shortness of
breath or diarrhea. He says he is not exactly sure when his last bowel movement was, but believes it has been days.
PMHx: IV drug use, ADHD, tobacco use
PSHx: I&D of abscess on buttocks with surgical washout and packing, colonoscopy
Past Medical History
Past Medical History: Other (Above as per HPI)
Past Surgical History: Other (Above as per HPI)
Social History
Tobacco: Smoker
Alcohol: None
Drug: IVDA
Personal: Single
Living: With Family
Family History
Family History: Cancer (Paternal grandfather: Lung cancer, brain cancer) and Hypertension (Mother)
Allergies / Home Medications
Allergies
Allergy/AdvReac Type Severity Reaction Status Date / Time
vancomycin Allergy Mild Rash Verified 04/27/25 02:44
Home Medications
�Medication �Instructions �Recorded �Confirmed �Last Taken �Type
No Meds [No Current Medications] 04/27/25 04/27/25 Unknown History
Review of Systems
-
History Source: Patient
All other systems: Negative unless noted
Vitals / Labs / Diagnostic Testing
Vital Signs
Temp Pulse Resp BP Pulse Ox
99.0 F 107 17 136/73 96
04/27/25 11:00 04/27/25 13:00 04/27/25 13:00 04/27/25 13:00 04/27/25 13:00
Lab Data
04/26/25 21:43
04/26/25 21:43
Diagnostic Testing:
Physical Exam
-
HEENT: Normocephalic and Anicteric
Cardiovascular: S1/S2, Peripheral Edema (Trace left lower extremity pitting edema with no edema on the right lower extremity) and Other (Tachycardic)
Respiratory: Wheeze (negative), Rales (negative), Rhonchi (negative) and Non-Labored Respirations
GI: Soft, Non Distended, Non Tender and Normal Bowel Sounds
Neurology: AO x 3 and Tremors (negative)
Skin: Warm, Dry and Other (Bandages along distal lower extremities bilaterally)
General: Respiratory Distress (negative), Fever (negative), Chills (Positive), Sweats (Positive) and Poor Appetite
Assessment
-
Assessment: 30-year-old male with a past medical history of ADHD, tobacco use and IV drug use who presents with painful lower extremities with swelling for 3 days. Patient injects fentanyl + Tranq daily, he says 30 bags a day, and usually injects
into his lower extremities. He says that he has been having worsening pain in his legs although has had no fevers or chills. His left leg is tender to touch more than the right side. He tests his fentanyl himself and knows how to dilute it to
help lower the xylazine content. He last used IV drugs 1 day prior to arrival. He has been on suffocate in the past in addition to Vivitrol however he says he OD'd on the Vivitrol shot. Patient was afebrile in the ER to 98.7 �F, pulse rate 77,
respiratory rate 18, BP 139/85 and saturating 100% on room air. Labs showed normal WBC at 10.1, Hb 12.5, UDS positive for opiates + fentanyl, and alcohol level negative. Blood cultures collected, and he was given buprenorphine 300 mcg, 4 mg
morphine + IV vancomycin. He was admitted to the IMU for further care. Today, the patient's withdrawal symptoms worsened with increasing shakiness and tachycardia. Patient now being transferred to the ICU for consideration of Precedex drip.
Director Medical Writing services consulted for additional management/recommendations.
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
Impression:
#IV drug use with fentanyl + Tranq now with withdrawal
#Lower extremity cellulitis due to IV drug use with multiple eschars in lower extremities bilaterally (L >R)
#Tobacco use
#ADHD
Plan:
- Given that the patient uses 30 bags of fentanyl a day, he has a very high tolerance and the standard micro dosing algorithm order sent will need to be adjusted accordingly
- Patient is currently on buprenorphine 300 mcg buccal q4hr with the ultimate goal of transitioning to 60 mg SL once daily starting 05/01; also on oxycodone 40 mg PO q8hr for now with orn Zanaflex, Subutex, oxycodone, clonidine, Imodium, Benadryl,
Compazine and Atarax
- Considering that part of his withdrawal is also due to xylazine, I will start scheduled clonidine at 0.3 mg q8hr; if this fails to give him more comfort then would start Precedex drip
- Given his very high opiate tolerance, may need to start IV opiates in this acute period as the PO oxycodone may not be enough to sufficiently control withdrawal symptoms, especially while we are starting him on Subutex which could potentially be
contributing his withdrawal if he is being insufficiently treated with an opiate at a relatively low dose
- May give a dose of IV Dilaudid and see how he responds to this (i.e. 2mg), and then if he responds favorably then may change his PO oxy to IV Dilaudid with prn Dilaudid +/- prn PO oxycodone and then plan to reduce the opiate dosing while the
subtex dosing is increasing throughout the next few days
- Continue antiemetics and monitor for nausea/vomiting; can adjust diet if needed based on his symptoms
- Nicotine patch
- Maintain SpO2 >90-94%
- Currently on room air breathing comfortably, saturating 95%
- Continue aspiration precaution
- Continue with Ancef for his lower extremity cellulitis
- Follow-up blood cultures
- Follow-up MRSA swab
- Recommend wound care consult + ID consult
- Lower extremity duplex ultrasound negative for DVT
- Maintain MAP>65
- Replete electrolytes with K>4, Mg>2
- Maintain euglycemia with goal BG 140-180
- Trend H/H and transfuse if needed to keep Hb>7g/dL; keep plt>20k, unless there is concern for bleeding then keep plt>50k
- prn nebulized bronchodilators - not currently bronchospastic
- Incentive spirometer encouraged 10x per hour for at least 4 hrs a day
- Monitor for bowel movements - he is not sure when his last BM was. I will order senokot
- Consult CM to assist with treatment/rehab options once he is medical stable
- DVT ppx: LMWH
Critical care statement: A total of 38 minutes of critical care time was provided for this patient today. This includes management of unstable vital signs, evaluation of the patient at bedside, reviewing the patient's pertinent medical records
including radiographs, microbiology, laboratory evaluations, and discussion with primary team, consultants, pharmacy, nutrition, physical therapy, case management, charge nurse, critical care nursing, and respiratory therapy.
[2025-04-27] MEDS: DILAUDID 2 MG IV (15:15)
[2025-04-27] MEDS: SENOKOT-S 2 TABLET PO (15:15)
[2025-04-27] MEDS: CATAPRES 0.2 MG PO (15:15)
[2025-04-27 15:34] LABS: Alcohol None Detected
--- NOTE | 2025-04-27 16:10 | PTCARENOTE ---
Reassessed the patient, A&Ox4, generalized body shakiness at times, on RA, ST in 100s to 110s, BP stable, vomited large green emesis, felt relief after.
--- NOTE | 2025-04-27 16:28 | CS.PSYCHR ---
Consult Summary - Psychiatry
-
Pt is a 30 yo male with IV opioid use, who presented to due to bilateral open leg wounds from injection sites. UDS + for Fentanyl. Pt seen resting in bed, stating he is not feeling well due to his legs and opioid withdrawal. Pt tolerating
opioid protocol- utilizing Oxycodone and starting with lower doses of Buprenorphine. Pt reports hx of depression and anxiety, was seeing a private therapist but could not afford to keep going. Pt denies SI, denies need for acute mental health
treatment, states plan to go to drug rehab when medically stable.
Psych Hx: denied prior psychiatric tx/medication, denies hx of inpatient psych tx. Pt has hx of multiple drug rehabs, last one [facility]
SH: lives with family; limited historian today due to discomfort
MSE: alert, oriented, making eye contact. Intermittently shaky, appears to be in discomfort. Mood stable, affect calm/appropriate. No agitation, no signs of psychosis. Insight limited to fair
Imp: Opioid Use d/o, severe
Rec: continue opioid withdrawal protocol; drug rehab when medically stable
will follow peripherally
--- NOTE | 2025-04-27 17:00 | PTCARENOTE ---
Patient had a low grade fever 100.6F, PRN Tylenol given.
[2025-04-27] MEDS: LOVENOX 40 MG SC (17:05)
[2025-04-27] MEDS: TYLENOL 1000 MG PO (17:13)
[2025-04-27] MEDS: MELATONIN 10 MG PO (21:02)
[2025-04-27] MEDS: CATAPRES 0.3 MG PO (22:02)
--- NOTE | 2025-04-27 22:41 | PTCARENOTE ---
~2030: Patient received in bed awake and alert x4. Verbalizes 8-9/10 pain to bilateral lower extremities. COWS score of 10. Plan of care for the shift reviewed with the patient. Patient is tentative of moving his right arm due to IV access. The
patient and his sister stated that the patient is unable to change positions or shift weight due to his legs swelling and pain. Pt's sister also verbalized that the patient should not receive any medication containing naltrexone due to the patient
going through 'presets' if the patient is given such medications during his withdrawal process. Per the family, the patient can have unstable vitals up to having seizures, the sister stated. The patient and his sister also asked for a mouth guard
due to the patient grinding and bitting his teeth due to withdrawal. Explained to the patient that mouth guards are unavailable and that bite blocks are what's available. Pt's sister also stated that they were told by the physician that the patient
was being transferred to the ICU to be 'knocked out and make him sleep to help him go through withdrawal with less pain.' COWs protocol explained to the patient and family. Relaid pt's sister concern to the FURNITURE UPHOLSTERY MECHANIC. Melatonin ordered. PRN Pain medication
and melatonin administered. Pt declined bite block. Bed alarm in use. Call duval and personal belonings are within reach. Full assessment as noted on the worklist.
--- NOTE | 2025-04-27 23:14 | PTCARENOTE ---
[id number]: Patient vomited 300 cc of greenish bile. Compazine administered. Yudy jeniffer offered. Cool cloth wipes completed.
[2025-04-28] VITALS (41 sets, daily range): BP systolic 121–159; BP diastolic 61–92; BMI 29.5
[2025-04-28] MEDS: OXYCONTIN (CONTROLLED RELEASE) 40 MG PO ×2 (00:39→08:11)
[2025-04-28] MEDS: DILAUDID 0.5 MG IV (00:46)
--- NOTE | 2025-04-28 00:48 | PTCARENOTE ---
Patient projectile vomited all over the bed and floor. Unable to keep PO medications down. Bladder scanned for 323 ml, and the patient voided 350 ml odorous orange urine. GENERAL OFFICE ASSISTANT made aware of pt's medication status. COWS 28. Patient cleansed with CHG
cloth wipes and full linen change completed. Dilaudid 0.5 mg IV ordered.
[2025-04-28 03:56] LABS: Hematocrit 36.4 % (39.0-52.0); Hemoglobin 12.4 g/dL (13.0-18.0); Mean Corp Hgb Conc. 34.1 g/dL (33.0-37.0); Mean Corpuscular Volume 85.2 fL (80.0-94.0); Mean Platelet Volume 9.3 fL (7.4-10.4); Platelet Count 403 10^3/uL (130-400); Red Blood Cell Count 4.27 10^6/uL (4.70-6.10); Red Cell Dist. Width 12.7 % (11.5-14.5); White Blood Cell Count 17.7 10^3/uL (4.8-10.8)
[2025-04-28 04:20] LABS: ALT (SGPT) 13 U/L (0-50); AST (SGOT) 20 U/L (17-59); Alkaline Phosphatase 110 U/L (38-126); Blood Urea Nitrogen 15 mg/dl (9-20); Calcium 9.4 mg/dl (8.4-10.2); Carbon Dioxide 24 mmol/L (22-30); Chloride 111 mmol/L (98-107); Direct Bilirubin 0.3 mg/dl (0.0-0.4); Estimated Creatinine Clearance > 125 ml/min; Glucose 121 mg/dl (70-99); Potassium 3.4 mmol/L (3.5-5.1); Sodium 150 mmol/L (135-145); Total Bilirubin 0.9 mg/dl (0.2-1.3); Total Protein 7.2 g/dl (6.3-8.2); eGFR > 60.00
--- NOTE | 2025-04-28 04:37 | W.PN.UPDATE ---
Update Note
Progress Note Update
Frequent vomiting overnight and poor oral intake, NA went from 141 to150, started one bag of D5 @ 75ml/hr.
[2025-04-28] MEDS: D5W 1000 IV ×2 (04:46→17:13)
[2025-04-28] MEDS: KCL 20 MEQ PO (04:47)
[2025-04-28] MEDS: ZOFRAN 4 MG IV (04:53)
--- NOTE | 2025-04-28 04:56 | PTCARENOTE ---
Patient reassessed. Placed on 2 liters O2/nc for SpO2 87%. Pt's mouth breathing and clenching his teeth. NSR-Sinus tach on the monitor. Pt's K is 3.4. Kcl 20 meq PO ordered and administered. The patient vomited post medication administration. EDUCATION DIRECTOR
made aware. KCL 40 meq in d5w IV ordered . Zofran administered.
[2025-04-28] MEDS: KCL 270 MEQ IV ×2 (05:31→21:31)
[2025-04-28] MEDS: ANCEF 10 IV ×3 (06:13→21:58)
[2025-04-28] MEDS: CATAPRES PO (06:16)
[2025-04-28 06:38] LABS: Hepatitis C Antibody Reactive (Negative)
[2025-04-28] MEDS: SENOKOT-S 1 TABLET PO ×2 (08:07→19:31)
[2025-04-28] MEDS: SUBUTEX 2 MG SL ×4 (08:07→21:58)
[2025-04-28] MEDS: HYDROPHOR 1 APPLIC TOPICAL (08:07)
[2025-04-28] MEDS: NICODERM TRANSDERMAL 14 MG TRANSDERM (08:11)
--- NOTE | 2025-04-28 08:17 | W.PN.INTV ---
Today's Communication / Plan
Recommendations
Continue supportive care while continuing Subutex microdosing algorithm
Pain control
IV antibiotics
Wound care
ID consulted
If lower extremity erythema and/or tenderness worsens or if he spikes a fever then would check lower extremity MRI to evaluate for deep tissue infection and consult surgery
Continue ICU level care for tonight however if he remains stable then would downgrade to IMU
Assessment
-
Assessment: 30-year-old male with a past medical history of ADHD, tobacco use and IV drug use who presents with painful lower extremities with swelling for 3 days. Patient injects fentanyl + Tranq daily, he says 30 bags a day, and usually injects
into his lower extremities. He says that he has been having worsening pain in his legs although has had no fevers or chills. His left leg is tender to touch more than the right side. He tests his fentanyl himself and knows how to dilute it to
help lower the xylazine content. He last used IV drugs 1 day prior to arrival. He has been on suffocate in the past in addition to Vivitrol however he says he OD'd on the Vivitrol shot. Patient was afebrile in the ER to 98.7 �F, pulse rate 77,
respiratory rate 18, BP 139/85 and saturating 100% on room air. Labs showed normal WBC at 10.1, Hb 12.5, UDS positive for opiates + fentanyl, and alcohol level negative. Blood cultures collected, and he was given buprenorphine 300 mcg, 4 mg
morphine + IV vancomycin. He was admitted to the IMU for further care. Today, the patient's withdrawal symptoms worsened with increasing shakiness and tachycardia. Patient now being transferred to the ICU for consideration of Precedex drip.
Electric Motor Repairer services consulted for additional management/recommendations.
Chronic conditions BRASS CHASER: IV drug use, ADHD, tobacco use
Impression:
#IV drug use with fentanyl + Tranq now with withdrawal
#Lower extremity cellulitis due to IV drug use with multiple eschars in lower extremities bilaterally (L >R)
#Acute hyponatremia due to reduced water intake and vomiting
#Tobacco use
#ADHD
Plan:
- Given that the patient uses 30 bags of fentanyl a day, he has a very high tolerance and the standard microdosing algorithm may need to be adjusted accordingly
- Continue with buprenorphine algorithm with the ultimate goal of transitioning to 60 mg SL once daily starting 05/01; also on oxycodone 20 mg PO q8hr for now with prn Zanaflex, Subutex, oxycodone, clonidine, Imodium, Benadryl, Compazine and Atarax
- Considering that part of his withdrawal is also due to xylazine, I started scheduled clonidine at 0.3 mg q8hr; if this fails to give him more comfort then would start Precedex drip
- Given his very high opiate tolerance, may need to start IV opiates in this acute period as the PO oxycodone may not be enough to sufficiently control withdrawal symptoms, especially while we are starting him on Subutex which could potentially be
contributing his withdrawal if he is being insufficiently treated with an opiate at a relatively low dose
- Continue antiemetics and monitor for nausea/vomiting; can adjust diet if needed based on his symptoms
- Nicotine patch
- Maintain SpO2 >90-94%
- He is now requiring supplemental oxygen at 3 L/min; CXR checked which showed no acute cardiopulmonary pathology
- Possibly related to hypoventilation; I will order incentive spirometer and encouraged him to use q1hr while awake
- Continue aspiration precautions
- Continue with Ancef for his lower extremity cellulitis
- Follow-up blood cultures (NGTD)
- MRSA swab negative
- Continue wound care; ID consulted and recs appreciated --> if patient has worsening leukocytosis, fever spike or if lower extremity erythema/tenderness worsens then would obtain lower extremity MRI to evaluate for either foreign body or deep
tissue infection with general surgery consultation
- Check Tib/fib XR to eval for foreign body given he was injecting into his lower extremities/wounds
- Lower extremity duplex ultrasound negative for DVT
- Maintain MAP>65
- Replete electrolytes with K>4, Mg>2
- Maintain euglycemia with goal BG 140-180
- Trend H/H and transfuse if needed to keep Hb>7g/dL; keep plt>20k, unless there is concern for bleeding then keep plt>50k
- prn nebulized bronchodilators - not currently bronchospastic
- Monitor for bowel movements - he is not sure when his last BM was. Nitza ordered
- Consult CM to assist with treatment/rehab options once he is medical stable
- DVT ppx: LMWH
If patient remains stable with no need for Precedex tonight then will downgrade out of ICU tomorrow.
Total time spent today was 59 minutes for this encounter. Time includes reviewing laboratory test/imaging results, reviewing pertinent medical records, obtaining and reviewing medical history, performing an appropriate exam, ordering medications,
tests and procedures. Time also includes documentation of this encounter, coordinating patient care and communicating with other healthcare professionals. Total time does not include separately billed tests performed on this date of service.
Subjective Dataa
Subjective Data
Date of Service:
Date of Service: April 28, 2025
Chief Complaint: Electric Motor Repairer Follow Up
Subjective:
Patient seen and evaluated this morning. Now on 3 L/min nasal cannula. Saturating 93%, heart rate 81 and BP 138/84. Vomited twice this morning. Precedex never started. He says he overall feels better but still feels fatigued. He currently
denies shortness of breath or chest pain. Also denies nausea.
Review of Systems
General: Other (Negative unless mentioned above)
Objective Data
Data Reviewed
Vital Signs / I&O / Oxygen:
Vital Signs
Temp Pulse Resp BP Pulse Ox
99.1 F 82 26 143/83 91
04/28/25 08:19 04/28/25 10:00 04/28/25 10:00 04/28/25 10:00 04/28/25 10:00
Intake and Output
04/27/25 04/28/25 04/29/25
06:59 06:59 06:59
Intake Total 1114.5 / 1257.0 502.5 / 502.5
Output Total 300 / 300 700 / 700
Balance -300 / -300 414.5 / 557.0 502.5 / 502.5
SaO2 91
Nasal Cannula flow liters per 2
minute
Physical Exam
General: Respiratory Distress (negative), Comfortable, Chills (negative) and Sweats (negative)
HEENT: Normocephalic and Anicteric
Cardiovascular: S1-S2 and Peripheral Edema (negative)
Respiratory: Wheeze (negative), Rhonchi (negative), Non-Labored Respirations and Other (Coarse breath sounds heard bilaterally)
GI: Soft, Non Distended, Non Tender and Normal Bowel Sounds
Neurology: AO x 3 and Tremors (negative)
Skin: Warm, Dry, Cyanosis (negative) and Jaundice (negative)
Labs/Micro/Reports
Lab Data
04/28/25 09:51
Microbiology
04/27/25 03:08 Nose MRSA Screen - Final
No Methicillin Resistant Staphylococcus aureus isolated.
04/26/25 21:43 Blood/Venous Blood Culture - Preliminary
No Growth in 24 hours- Final report to follow
04/26/25 21:43 Blood/Venous Blood Culture - Preliminary
No Growth in 24 hours- Final report to follow
[2025-04-28] MEDS: TIGAN 200 MG IM ×3 (08:19→20:11)
--- NOTE | 2025-04-28 09:51 | W.PN.HOSP.TC ---
Addendum entered and electronically signed by Lencho Damico MD 04/28/25 10:49:
Repeat labs noted. Continue D5W and follow sodium
Addendum entered and electronically signed by Lencho Damico MD 04/28/25 10:14:
Patient was not started on Precedex as he did well with other medicines.
Addendum entered and electronically signed by Lencho Damico MD 04/28/25 10:09:
Old records were requested. Not here yet.
Original Note:
Today's Communication/Plan
-
repeat labs today
Repeat EKG later today
Case management look for rehab
Continue antibiotics
Continue withdrawal treatment
Assessment / Plan
Assessment / Plan
30-year-old with lower extremity edema and pain. Patient reports injecting drugs into his lower extremities he has multiple ulcers. He also uses 30 bags of fentanyl daily he is also using xylazine. Started Oxycodone when he was in high school and
started using injectable drugs when he was 18 . He has had a sober period in 2017 after he completed [address] [facility] (That place is now closed) . He was sober For a year and a half and then relapsed. He has been to 27 and was
recently at [facility] in September . First over dose in 2014 [facility], he was in a coma per mom. When he relapsed for Soberity he used and haad a Cardiac arrest , treated at [facility] . Was on a hypothermia protocol as well per
mom.
He uses several bags of fentanyl every day and also xylazine. He states that he injects anywhere he can find a vein. No fevers reported. He doesn't have a job.
He Lives with mom and has state insurance.
On examination awake alert aware that he is at [facility] and month and year and what is going on with him.
Patient is drooling
Good strength upper extremities and lower extremities
Multiple shallow necrotic ulcers thigh, lower extremities anteriorly
Bilateral pedal pulses palpable
No tremors noted today
Patient is calm and able to communicate. Makes eye contact
Venous Dopplers bilateral lower extremity-no DVT
# Cellulitis-skin necrosis secondary to ulcerations from drug use
Injects Xylazine and fentanyl
Blood cultures negative so far
Continue Ancef
MRSA screening negative
Wound care evaluation appreciated
ID consult appreciated
# Opiate withdrawal syndrome
Xylazine withdrawal syndrome
Started on microdosing protocol for buprenorphine
Continue Zanaflex and clonidine as needed.
Discontinued Zofran and Compazine because of QTc prolongation
# Prolonged QTc-avoid any medicines which can prolong QTc. Check magnesium level and replace. Repeat EKG later today. Potassium repleted.
# Hypernatremia-repeat BMP now
# Leukocytosis-repeat CBC now
# Hypokalemia-potassium chloride has been given earlier
# Constipation resolved
# ADHD as a child.
# Short Stature needed Growth Hormone injection as a child.
# Smoker- Cessation Counselling.
# Hearing impairment B/L per mom -patient is able to hear and understand. Outpatient ENT evaluation was discussed with mother yesterday.
# DVT prophylaxis-Lovenox
# Full code
Discussed with nursing
Keep in ICU today
Case management to look for inpatient rehab
Part of this note was created using voice recognition system. Occasional wrong word or��sound alike� substitutions may have inadvertently occurred due to the inherent limitations of voice recognition software. If noted kindly bring it to my
attention for correction.
Anticipated Discharge: > 48 hours
Subjective/Interval History
-
Date of Service: April 28, 2025
Objective Data
-
Labs:
Laboratory Results
04/28/25 04/28/25 04/28/25
03:32 09:14 13:00
WBC 17.7 H Pending
Hgb 12.4 L Pending
Hct 36.4 L Pending
Plt Count 403 H D Pending
Sodium 150 H D Pending Pending
Potassium 3.4 L Pending Pending
Chloride 111 H Pending Pending
Carbon Dioxide 24 Pending Pending
BUN 15 Pending Pending
Creatinine 0.7 Pending Pending
Glucose 121 H Pending Pending
Calcium 9.4 Pending Pending
Total Bilirubin 0.9
AST 20
ALT 13
Alkaline Phosphatase 110
Vital Signs:
Vital Signs
Temp Pulse Resp BP Pulse Ox
99.1 F 122 21 149/73 92
04/28/25 08:19 04/28/25 04:00 04/28/25 04:00 04/28/25 03:00 04/28/25 04:00
I&O
04/27/25 04/28/25 04/29/25
06:59 06:59 06:59
Intake Total 1114.5 / 1114.5
Output Total 300 / 300 700 / 700
Balance -300 / -300 414.5 / 414.5
[2025-04-28 10:00] LABS: % Basophils 0.2 % (0-2); % Eosinophils 0.1 % (0-6); % Immature Granulocytes 0.5 % (0-0.5); % Lymphocytes 6.5 % (20.5-51.1); % Monocytes 7.7 % (1.7-9.3); Absolute Immature Granulocytes 0.1 10^3/uL (0-0.05); Absolute Lymphocytes 1.1 10^3/uL (1.2-3.4); Absolute Monocytes 1.3 10^3/uL (0.1-0.6); Absolute Neutrophils 14.4 10^3/uL (1.4-6.5); Hematocrit 36.6 % (39.0-52.0); Hemoglobin 12.2 g/dL (13.0-18.0); Mean Corp Hgb Conc. 33.3 g/dL (33.0-37.0); Mean Corpuscular Hgb 28.5 pg (27.0-31.0); Mean Corpuscular Volume 85.5 fL (80.0-94.0); Mean Platelet Volume 9.2 fL (7.4-10.4); Nucleated Red Blood Cells % 0 % (-); Platelet Count 391 10^3/uL (130-400); Red Blood Cell Count 4.28 10^6/uL (4.70-6.10); Red Cell Dist. Width 12.8 % (11.5-14.5)
[2025-04-28 10:16] LABS: Blood Urea Nitrogen 17 mg/dl (9-20); Calcium 9.4 mg/dl (8.4-10.2); Carbon Dioxide 27 mmol/L (22-30); Chloride 112 mmol/L (98-107); Estimated Creatinine Clearance > 125 ml/min; Glucose 139 mg/dl (70-99); Magnesium 2.4 mg/dl (1.6-2.3); Potassium 3.7 mmol/L (3.5-5.1); Sodium 151 mmol/L (135-145); eGFR > 60.00
--- NOTE | 2025-04-28 10:35 | W.PN.ID1 ---
Date of Service
Date of Service: April 28, 2025
Today's Communication
See below.
Assessment / Plan
# BLE soft tissue necrotic wounds from Xylocaine inj
# IVDU withdrawal
# Reactive leukocytosis
- Blood cultures neg to date x 24h
- Continue cefazolin for now
-Trend WBC
- HIV pending
- Hep C Ab positive.
Ordered HCV PCR.
Chief Complaint
-: Other (Wounds)
Subjective / Review of Systems
Does not feel well. Several vomiting overnight.
Vital Signs / Physical Exam
Vital Signs
Vital Signs
Temp Pulse Resp BP Pulse Ox
99.1 F 82 26 143/83 91
04/28/25 08:19 04/28/25 10:00 04/28/25 10:00 04/28/25 10:00 04/28/25 10:00
Physical Exam
Constitutional: Acutely Ill
Eyes: No Conjunctival Hemorrhage and Sclera Anicteric
Cardiovascular: Regular Rate and S1/S2
Pulmonary: Clear
Gastrointestinal: Soft, Non Distended and Normal Bowel Sounds
Wound: Other (BLE wounds with eschar stable, no surrounding erythema)
Neurological: Tremors and Other (Lethargic)
Objective Data
Lab Data
Lab Results
04/28/25 09:51
Estimated Creat Clear > 125 ml/min 04/28/25 09:51
Lactic Acid Cancelled 04/27/25 01:15
Total Bilirubin 0.9 mg/dl (0.2-1.3) 04/28/25 03:32
AST 20 U/L (17-59) 04/28/25 03:32
ALT 13 U/L (0-50) 04/28/25 03:32
Alkaline Phosphatase 110 U/L (38-126) 04/28/25 03:32
Most recent labs reviewed.
Micro Results:
04/27/25 03:08 MRSA Screen - Final
Nose No Methicillin Resistant Staphylococcus aureus isolated.
04/26/25 21:43 Blood Culture - Preliminary
Blood/Venous No Growth in 24 hours- Final report to follow
04/26/25 21:43 Blood Culture - Preliminary
Blood/Venous No Growth in 24 hours- Final report to follow
--- NOTE | 2025-04-28 11:18 | PTCARENOTE ---
pt drowsy , oriented to place , pupils dilated , flushed skin , flat affect , HR NSR - ST 82-110 , SBP 140-154, DBP 76-92 , cows score 8. Lungs are diminished with increasing needs of 02 currently on 3L for a sat of 92% , he has been vomiting ,
Tigan was given , WBC are now elevated to 17.0 , he is on IV Ancef , he is incontinent of bowel and bladder , condom cath placed , he had repeat chemistry and CBC this am that had no significant changes Dr Damico notified, pt continues on IVF . Pt
mother at bedside she is waiting to participate in ICU rounds she was updated on current plan of care and condition
[2025-04-28 11:35] LABS: HIV Combo Negative (Negative)
[2025-04-28] MEDS: TORADOL 10 MG IV (11:40)
[2025-04-28] MEDS: ZANAFLEX 2 MG PO ×2 (12:20→19:31)
[2025-04-28] MEDS: CATAPRES 0.3 MG PO ×2 (13:05→21:58)
--- NOTE | 2025-04-28 14:34 | W.CON.NEPH ---
Consultation
-
Date/Time Consultation Requested: 04/28/2025 9:30 AM
Date/Time Consultation Performed: 04/28/2025 2:30 PM
Requesting Provider: Dr. Damico
Performing Provider: Dr. Hanna
Reason for Consultation: Hypernatremia
Medical History
-
Chief Complaint: Hypernatremia
History of Present Illness:
30-year-old male with a past medical history of ADHD, tobacco use and IV drug use who presents with painful lower extremities with swelling for 3 days. Patient injects fentanyl + Tranq daily, he says 30 bags a day, and usually injects into his
lower extremities. He says that he has been having worsening pain in his legs although has had no fevers or chills. He last used IV drugs 1 day prior to arrival. The patient has bilateral soft tissue necrotic wounds from injections he has also
had issues with IV drug withdrawal since admission. We are consulted for hypernatremia
Past Medical History
ADHD
IV drug abuse
Social History
Tobacco: Smoker
Drug: IVDA
Allergies / Home Medications
Allergy/AdvReac Type Severity Reaction Status Date / Time
vancomycin Allergy Mild Rash Verified 04/27/25 02:44
�Medication �Instructions �Recorded �Confirmed �Type
No Meds [No Current Medications] 04/27/25 04/27/25 History
Review of Systems
-
All other systems: Negative unless noted
EENT: Other (Hearing impairment)
: Incontinence
Skin: Other (Multiple shallow necrotic ulcers thigh, lower extremities anteriorly)
Physical Exam
Vital Signs
Vital Signs
Temp Pulse Resp BP Pulse Ox
99.3 F 74 26 158/82 91
04/28/25 12:26 04/28/25 13:05 04/28/25 10:00 04/28/25 13:05 04/28/25 10:00
Lab Results
WBC 17.0 10^3/uL (4.8-10.8) H 04/28/25 09:51
RBC 4.28 10^6/uL (4.70-6.10) L 04/28/25 09:51
Hgb 12.2 g/dL (13.0-18.0) L 04/28/25 09:51
Hct 36.6 % (39.0-52.0) L 04/28/25 09:51
Plt Count 391 10^3/uL (130-400) 04/28/25 09:51
eGFR Cancelled 04/28/25 13:00
Albumin 4.0 g/dl (3.5-5.0) 04/28/25 03:32
Physical Exam
General: AOx3, Nontoxic , NAD
HEENT: PERRL, EOMI, Anicteric, Conjunctivae Clear, Ear/Nose Intact, Hearing Normal, Oropharynx Clear/Moist, Dentition Intact, Facial Symmetry, Neck Supple, Neck: Trachea Midline, No JVD and No Thyromegaly, no Bruits
Respiratory: Clear to auscultation bilaterally with normal lung exersion
Cardiac: S1/S2 and Regular Rate/Rhythm
Breast: Deferred by me
Abdomen: Soft, Nontender, Nondistended, Normal Bowel Sounds and No Hepatosplenomegaly
Rectal: Deferred by Provider
Genito-urinary: No Costovertebral Tenderness
Extremities: Multiple shallow necrotic ulcers thigh, lower extremities anteriorly
Skin: No Rash or open lesions
Neuro: Nonfocal/Grossly Intact, CN II-XII (Intact) and Strength (Musculoskeletal exam 5 out of 5 both upper and lower extremities)
Hematologic/Lymphatic: No Cervical Lymphadenopathy, No Submandibular Lymphadenopathy and No Supraclavicular Lymphadenopathy
Psych: Mood/afflect pleasant, Insight/judgement good and Appropriate
Vascular: plus 2 pedal and radial pulses
Data Reviewed
-
Ultrasound: Other (No ultrasound evidence of lower extremity venous thrombosis)
Labs: Labs Reviewed by me (BMP CBC)
Old Records: Reviewed (Old labs reviewed from date 10/03/2024 sodium 141)
Assessment/Plan
-
Impression:
Hypernatremia
Cellulitis of lower extremity with skin necrosis
IV drug abuse
Opiate withdrawal
History of ADHD
Plan:
Hypernatremia:'
-Current free water deficit calculated to 3.8 liters
-maintain free water IVFs at 100cc/hr
- Check urine osmolality (DI?)
-Check postvoid bladder scan to assess for possible urinary retention
[2025-04-28] MEDS: OXYCONTIN (CONTROLLED RELEASE) 20 MG PO ×2 (15:18→23:21)
--- NOTE | 2025-04-28 15:23 | CM ---
Discharge POC: TBD. B-cares to assess. Therapy needs to evaluate.
[2025-04-28 15:25] LABS: Osmolality Urine 580 mOsm/kg (300-900)
[2025-04-28 16:27] LABS: Blood Urea Nitrogen 19 mg/dl (9-20); Calcium 9.3 mg/dl (8.4-10.2); Carbon Dioxide 29 mmol/L (22-30); Chloride 109 mmol/L (98-107); Estimated Creatinine Clearance > 125 ml/min; Glucose 145 mg/dl (70-99); Magnesium 2.5 mg/dl (1.6-2.3); Phosphorus 2.7 mg/dl (2.5-4.5); Potassium 3.5 mmol/L (3.5-5.1); Sodium 149 mmol/L (135-145); eGFR > 60.00
--- NOTE | 2025-04-28 16:27 | PTCARENOTE ---
pt looks more comfortable , 2 more vomiting episodes , Tigan given , pt is more conversant than previous
[2025-04-28] MEDS: LOVENOX 40 MG SC (17:38)
--- NOTE | 2025-04-28 19:15 | PTCARENOTE ---
Patient received visibly tremulous, anxious, restless. C/o nausea. COWS 18. Prn Zanaflex, Clonidine and Atarax given as well as prn Roxicodone for c/o LE discomfort 06/28. Tigan given IM when able for nausea. See wire drawing machine tender charted on Worklist
flowsheet. Sinus arrythmia on CM, S1S2 irregular with positive murmur. Pulses palpable x 4 extremities, BLE edema 3+, BUE edema 1+. Condom cath in place with clear juanito urine. RUE midline with IVF per order. Takes po meds and fluids without s/sx of
aspiration. BBS clear. Patient repositions self in bed and he is encouraged to do so. HOB up. Bed in low and locked position with call duval in reach. Bed alarm on.
[2025-04-28] MEDS: ATARAX 50 MG PO (19:31)
[2025-04-28] MEDS: CATAPRES 0.1 MG PO (19:31)
[2025-04-28] MEDS: ROXICODONE 20 MG PO (19:40)
--- NOTE | 2025-04-28 23:30 | PTCARENOTE ---
Patient appears much calmer. Still occasionally diaphoretic but less tremulous and states that he feels better. SR on CM. Otherwise, no change in patient's physical assessment.
[2025-04-29] VITALS (26 sets, daily range): BP systolic 114–148; BP diastolic 67–95; PULSE 64; O2SAT 95; BMI 30.1
[2025-04-29] MEDS: D5W 1000 IV ×3 (02:37→22:40)
[2025-04-29] MEDS: ROXICODONE 20 MG PO ×2 (04:14→17:51)
--- NOTE | 2025-04-29 04:20 | PTCARENOTE ---
Addendum entered by Charity Saenz RN 04/29/25 04:24:
Am labs drawn.
Original Note:
Prn pain medication Roxicodone given for c/o pain 6/10 of BLEs. Sats 99% on 3L/nc oxygen; Turned oxygen down to 1L/nc. States feels much calmer, less jittery. However, mild tremors still visible. BP continues to be mildly elevated but HR much
improved. Rest of physical assessment unchanged. Patient has slept fairly t/o night. Repositioned for comfort. Condom cath remains in place. Call duval in reach.
[2025-04-29 04:34] LABS: Hematocrit 33.5 % (39.0-52.0); Hemoglobin 10.7 g/dL (13.0-18.0); Mean Corp Hgb Conc. 31.9 g/dL (33.0-37.0); Mean Corpuscular Hgb 28.1 pg (27.0-31.0); Mean Corpuscular Volume 87.9 fL (80.0-94.0); Mean Platelet Volume 9.2 fL (7.4-10.4); Platelet Count 297 10^3/uL (130-400); Red Blood Cell Count 3.81 10^6/uL (4.70-6.10); Red Cell Dist. Width 12.7 % (11.5-14.5); White Blood Cell Count 13.3 10^3/uL (4.8-10.8)
[2025-04-29 04:50] LABS: Blood Urea Nitrogen 20 mg/dl (9-20); Carbon Dioxide 30 mmol/L (22-30); Chloride 109 mmol/L (98-107); Estimated Creatinine Clearance > 125 ml/min; Glucose 132 mg/dl (70-99); Magnesium 2.4 mg/dl (1.6-2.3); Potassium 3.7 mmol/L (3.5-5.1); Sodium 147 mmol/L (135-145); eGFR > 60.00
[2025-04-29] MEDS: CATAPRES 0.3 MG PO ×2 (05:46→13:35)
[2025-04-29] MEDS: ANCEF 10 IV ×3 (05:46→21:33)
--- NOTE | 2025-04-29 06:00 | PTCARENOTE ---
Noted that patient had 250cc UO via condom cath, urine looks quite cloudy upon emptying bag. No c/o pain with urination. Overnight low grade fever 100.6F and 99.6F this am. On Ancef ABx. JOHN Jaime updated with assessment.
--- NOTE | 2025-04-29 07:14 | PTCARENOTE ---
Report given verbally to oncoming Riddhi coulter RN. Questions answered.
--- NOTE | 2025-04-29 08:00 | PTCARENOTE ---
07:30 Received patient in sleep, arousable to voice, A&Ox4, on RA, NSR w/ SA, BP stable, NICCI midline infusing D5W @100mL/hr, denied N/V, condom cath in place.
08:00, patient refused breakfast d/t poor appetite, this RN encouraged fluid intake. Patient agreed.
[2025-04-29] MEDS: SENOKOT-S 1 TABLET PO ×2 (08:21→20:14)
[2025-04-29] MEDS: SUBUTEX 4 MG SL ×4 (08:21→21:34)
[2025-04-29] MEDS: OXYCONTIN (CONTROLLED RELEASE) 20 MG PO (08:21)
[2025-04-29] MEDS: NICODERM TRANSDERMAL 14 MG TRANSDERM (08:22)
[2025-04-29] MEDS: HYDROPHOR 1 APPLIC TOPICAL (08:22)
--- NOTE | 2025-04-29 08:22 | W.PN.INTV ---
Today's Communication / Plan
Recommendations
Continue supportive care while continuing Subutex microdosing algorithm
Check lower extremity CT imaging
General Surgery consulted, recs appreciated, no acute surgical intervention recommended at this time
Pain control
IV antibiotics per ID
Wound care
If lower extremity erythema and/or tenderness worsens then would check lower extremity MRI to evaluate for OM
Patient is stable for downgrade out of ICU to IMU. No additional recommendations at this time. Supervisor Inspection Room/Pulmonary service will now sign off. Please reconsult if there are any additional questions/concerns, or if patient's respiratory status
deteriorates.
Assessment
-
Assessment: 30-year-old male with a past medical history of ADHD, tobacco use and IV drug use who presents with painful lower extremities with swelling for 3 days. Patient injects fentanyl + Tranq daily, he says 30 bags a day, and usually injects
into his lower extremities. He says that he has been having worsening pain in his legs although has had no fevers or chills. His left leg is tender to touch more than the right side. He tests his fentanyl himself and knows how to dilute it to
help lower the xylazine content. He last used IV drugs 1 day prior to arrival. He has been on suffocate in the past in addition to Vivitrol however he says he OD'd on the Vivitrol shot. Patient was afebrile in the ER to 98.7 �F, pulse rate 77,
respiratory rate 18, BP 139/85 and saturating 100% on room air. Labs showed normal WBC at 10.1, Hb 12.5, UDS positive for opiates + fentanyl, and alcohol level negative. Blood cultures collected, and he was given buprenorphine 300 mcg, 4 mg
morphine + IV vancomycin. He was admitted to the IMU for further care. Today, the patient's withdrawal symptoms worsened with increasing shakiness and tachycardia. Patient now being transferred to the ICU for consideration of Precedex drip.
Supervisor Inspection Room services consulted for additional management/recommendations.
Chronic conditions CERAMIST: IV drug use, ADHD, tobacco use
Impression:
#IV drug use with fentanyl + Tranq now in acute withdrawal
#Lower extremity cellulitis due to IV drug use with multiple eschars in lower extremities bilaterally (L >R)
#Acute hyponatremia due to reduced water intake and vomiting
#Tobacco use
#ADHD
Plan:
- Given that the patient uses 30 bags of fentanyl a day, he has a very high tolerance and the standard microdosing subutex algorithm may need to be adjusted accordingly
- Continue with buprenorphine algorithm with the ultimate goal of transitioning to 60 mg SL once daily starting 05/01; continue prn oxycodone 20 mg PO q4hr with prn Zanaflex, Subutex, clonidine, Imodium, Tigan, Benadryl, and Atarax
- Considering that part of his withdrawal is also due to xylazine, I started scheduled clonidine at 0.3 mg q8hr; if this fails to give him more comfort then would start Precedex drip
- Given his very high opiate tolerance, may need to start IV opiates in this acute period as the PO oxycodone may not be enough to sufficiently control withdrawal symptoms, especially while we are starting him on Subutex which could potentially be
contributing his withdrawal if he is being insufficiently treated with an opiate at a relatively low dose
- Continue antiemetics and monitor for nausea/vomiting; can adjust diet if needed based on his symptoms
- Nicotine patch
- Maintain SpO2 >90-94%
- On 04/28, he was requiring supplemental oxygen at 3 L/min; CXR checked which showed no acute cardiopulmonary pathology
- He is now on room air and breathing comfortably and is clear on exam - hypoxia was likely due to atelectasis with shunting
- Continue incentive spirometer and encouraged him to use q1hr while awake
- Continue aspiration precautions
- Continue with Ancef for his lower extremity cellulitis
- Follow-up blood cultures (NGTD)
- MRSA swab negative
- Continue wound care; ID consulted and recs appreciated
- General surgery consulted - no acute surgical intervention needed at this time
- Check CT lower extremities bilaterally with contrast
- Lower extremity duplex ultrasound negative for DVT
- Maintain MAP>65
- Replete electrolytes with K>4, Mg>2
- Maintain euglycemia with goal BG 140-180
- Trend H/H and transfuse if needed to keep Hb>7g/dL; keep plt>20k, unless there is concern for bleeding then keep plt>50k
- prn nebulized bronchodilators - not currently bronchospastic
- Monitor for bowel movements - he is not sure when his last BM was. Nitza ordered
- CM consulted to assist with treatment/rehab options once he is medical stable - pt is interested in going into rehab after discharge
- DVT ppx: LMWH
Patient is stable for downgrade out of ICU to IMU. No additional recommendations at this time. Supervisor Inspection Room/Pulmonary service will now sign off. Thank you for allowing us to be involved in the care of this patient. Please reconsult if there are
any additional questions/concerns, or if patient's respiratory status deteriorates.
Total time spent today was 38 minutes for this encounter. Time includes reviewing laboratory test/imaging results, reviewing pertinent medical records, obtaining and reviewing medical history, performing an appropriate exam, ordering medications,
tests and procedures. Time also includes documentation of this encounter, coordinating patient care and communicating with other healthcare professionals. Total time does not include separately billed tests performed on this date of service.
Subjective Dataa
Subjective Data
Date of Service:
Date of Service: April 29, 2025
Chief Complaint: Supervisor Inspection Room Follow Up
Subjective:
Patient was seen and evaluated this morning. Currently, heart rate 63, BP 130/87 and saturating 96% on room air. Feels better today. Febrile last night to 100.6 �F. Remains on D5W at 100cc/hr. No vomiting today, but he did vomit 3x yesterday.
Review of Systems
General: Other (Negative unless mentioned above)
Objective Data
Data Reviewed
Vital Signs / I&O / Oxygen:
Vital Signs
Temp Pulse Resp BP Pulse Ox
99.1 F 63 12 132/87 96
04/29/25 07:43 04/29/25 09:00 04/29/25 09:00 04/29/25 09:00 04/29/25 09:00
Intake and Output
04/28/25 04/29/25 04/30/25
06:59 06:59 06:59
Intake Total 1114.5 / 1282.0 3192.5 / 3292.5 540 / 540
Output Total 700 / 700 350 / 350
Balance 414.5 / 582.0 2842.5 / 2942.5 540 / 540
SaO2 96
Nasal Cannula flow liters per 3
minute
Physical Exam
General: Respiratory Distress (negative), Comfortable, Chills (negative) and Sweats (negative)
HEENT: Normocephalic and Anicteric
Cardiovascular: S1-S2 and Peripheral Edema (negative)
Respiratory: Wheeze (negative), Crackles (negative), Rhonchi (negative) and Non-Labored Respirations
GI: Soft, Non Distended, Non Tender and Normal Bowel Sounds
Neurology: AO x 3 and Tremors (negative)
Skin: Warm, Dry, Cyanosis (negative) and Jaundice (negative)
Labs/Micro/Reports
Lab Data
04/29/25 04:09
04/29/25 04:09
Microbiology
04/26/25 21:43 Blood/Venous Blood Culture - Preliminary
No Growth in 48 hours- Final report to follow
04/26/25 21:43 Blood/Venous Blood Culture - Preliminary
No Growth in 48 hours- Final report to follow
04/27/25 03:08 Nose MRSA Screen - Final
No Methicillin Resistant Staphylococcus aureus isolated.
--- NOTE | 2025-04-29 09:14 | W.PN.HOSP.TC ---
Addendum entered and electronically signed by Lencho Damico MD 04/29/25 10:46:
OP Records still awaited
Addendum entered and electronically signed by Lencho Damico MD 04/29/25 09:25:
Hepatitis C antibody positive-quantitative assay pending
Original Note:
Today's Communication/Plan
-
OK for IMU
IVF
Follow labs
Surgery eval for wounds
Continue buprenorphine micro dosing protocol
Supportive care for xylazine withdrawal
Continue antibiotics
Assessment / Plan
Assessment / Plan
30-year-old with lower extremity edema and pain. Patient reports injecting drugs into his lower extremities he has multiple ulcers. He also uses 30 bags of fentanyl daily he is also using xylazine. Started Oxycodone when he was in high school and
started using injectable drugs when he was 18 . He has had a sober period in 2016 after he completed 6 months at [facility] (That place is now closed) . He was sober For a year and a half and then relapsed. He has been to 27 and was
recently at [facility] in September . First over dose in 2014 [facility], he was in a coma per mom. When he relapsed for Soberity he used and haad a Cardiac arrest , treated at [facility] . Was on a hypothermia protocol as well per
mom.
He uses several bags of fentanyl every day and also xylazine. He states that he injects anywhere he can find a vein. No fevers reported. He doesn't have a job.
He Lives with mom and has state insurance.
On examination awake alert aware that he is at [facility] and month and year and what is going on with him.
Good strength upper extremities and lower extremities
Multiple shallow necrotic ulcers thigh, lower extremities anteriorly
Bilateral pedal pulses palpable
No tremors noted today
Patient is calm and able to communicate.
Venous Dopplers bilateral lower extremity-no DVT
# Cellulitis-skin necrosis secondary to ulcerations from drug use
Injects Xylazine and fentanyl
Blood cultures negative so far
Continue Ancef
MRSA screening negative
Did not require Precedex
Wound care evaluation appreciated
ID consult appreciated
Surgery to evaluate to see if needs debridement.
# Opiate withdrawal syndrome
Xylazine withdrawal syndrome
Started on microdosing protocol for buprenorphine
Continue Zanaflex and clonidine as needed.
Discontinued Zofran and Compazine because of QTc prolongation
QTC better
# Prolonged QTc-Better
# Hypernatremia-unclear reasons. Possibly poor p.o. intake? Urine osmolality is not indicative of DI sodium is improving with IV fluids. Continue IV fluids.
# Leukocytosis-better
# Hypokalemia-replaced
# Constipation resolved
# ADHD as a child.
# Short Stature needed Growth Hormone injection as a child.
# Smoker- Cessation Counselling. Nicotine patch
# Hearing impairment B/L per mom -patient is able to hear and understand. Outpatient ENT evaluation was discussed with mother .
# DVT prophylaxis-Lovenox
# Full code
Discussed with nursing
Left message for Mom.
Discussed with nephrology
Discussed with case management -Case management to look for inpatient rehab
Part of this note was created using voice recognition system. Occasional wrong word or��sound alike� substitutions may have inadvertently occurred due to the inherent limitations of voice recognition software. If noted kindly bring it to my
attention for correction.
Anticipated Discharge: > 48 hours
Subjective/Interval History
-
Date of Service: April 29, 2025
Objective Data
-
Labs:
Laboratory Results
04/29/25
04:09
WBC 13.3 H
Hgb 10.7 L
Hct 33.5 L
Plt Count 297 D
Sodium 147 H
Potassium 3.7
Chloride 109 H
Carbon Dioxide 30
BUN 20
Creatinine 0.7
Glucose 132 H
Calcium 9.0
Vital Signs:
Vital Signs
Temp Pulse Resp BP Pulse Ox
99.1 F 80 17 148/89 99
04/29/25 07:43 04/29/25 06:00 04/29/25 06:00 04/29/25 06:00 04/29/25 06:00
I&O
04/28/25 04/29/25 04/30/25
06:59 06:59 06:59
Intake Total 1114.5 / 1282.0 3192.5 / 3192.5
Output Total 700 / 700 350 / 350
Balance 414.5 / 582.0 2842.5 / 2842.5
--- NOTE | 2025-04-29 10:42 | CON.GS ---
Consultation
-
Date/Time Consultation Performed: 04/29/25
Requesting Provider: Margaux
Performing Provider: Daniel
Reason for Consultation: BLE wounds
Medical History
-
Chief Complaint: BLE wounds
History of Present Illness:
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 He is interested in rehab. He has tried to manage his wounds at home. C/o pain and swelling of BLE that prompted admit. These have improved. We are consulted for wound mgmt.
Past Medical History
Past Medical History: Other (ADHD, IVDU)
Past Surgical History: Reviewed & Noncontributory
Social History
Tobacco: Smoker
Drug: IVDA
Personal: Single
Family History
Family History: Reviewed & Noncontributory
Allergies / Home Medications
Allergy/AdvReac Type Severity Reaction Status Date / Time
vancomycin Allergy Mild Rash Verified 04/27/25 02:44
�Medication �Instructions �Recorded �Confirmed �Type
No Meds [No Current Medications] 04/27/25 04/27/25 History
Review of Systems
-
A 10 point review of systems was completed, and was negative except as per HPI.
Physical Exam
Vital Signs
Temp Pulse Resp BP Pulse Ox
99.1 F 63 12 132/87 96
04/29/25 07:43 04/29/25 09:00 04/29/25 09:00 04/29/25 09:00 04/29/25 09:00
04/28/25 04/29/25 04/30/25
06:59 06:59 06:59
Actual Weight 80.4 kg 82 kg
Body Mass Index (BMI) 30.1
Lab Results
04/29/25 04:09
04/29/25 04:09
WBC 13.3 10^3/uL (4.8-10.8) H 04/29/25 04:09
Hgb 10.7 g/dL (13.0-18.0) L 04/29/25 04:09
Hct 33.5 % (39.0-52.0) L 04/29/25 04:09
Plt Count 297 10^3/uL (130-400) D 04/29/25 04:09
Abs Immat Gran (auto) 0.1 10^3/uL (0-0.05) H 04/28/25 09:51
Neutrophils % 85.0 % (42.2-75.2) H 04/28/25 09:51
Physical Exam
General: No Apparent Distress
HEENT: Normocephalic and Anicteric
GI: Soft and Non Tender
Skin: Other (BLE - thighs - scattered smaller wounds anterior, some with thicker eschar but small; calves - larger wounds with softer eschar and some skin changes suggestive of early demarcation)
Neuro: AO x 3
Psych: Calm
Data Reviewed
-
Labs: Labs Reviewed by me and Discussed with Physician
Assessment / Plan
-
30M with BLE wounds 2/2 IVDU
Low grade temps
WBC improving
Exam with smaller wounds with eschar to anterior thigh, areas of possible early demarcation to bilateral anterior calves, no fluctuance, no purulence, no odor, no crepitus, no bullae
Plan:
CT BLE to r/o deeper collections given ongoing fevers
Enzymatic debridement, local wound care
Monitor wounds for further demarcation, he may ultimately need operative debridement if wounds progress
GS will see periodically to re-assess wounds, sooner if imaging shows surgical intervention will be of benefit
IV abx
DVT ppx
--- NOTE | 2025-04-29 10:48 | W.PN.NEPH.PH ---
Today's Communication / Plan
-
IVF
Assessment/Plan
-
Impression:
Hypernatremia
Cellulitis of lower extremity with skin necrosis
IV drug abuse
Opiate withdrawal
History of ADHD
Plan:
Continue IV fluid D5W 100 cc/h
Hypernatremia likely due to hypotonic fluid losses from vomiting with decreased oral intake
Urine osmolality is supportive of this
Follow BMP
-
-
Date of Service: April 29, 2025
CC / HPI / ROS
-
Chief Complaint:
Hyponatremia
History of Present Illness:
Sodium slightly better at 147 with IV fluids
BP stable high
Still with nausea
Review of Systems:
No chest pain or shortness of breath
Labs
-
Labs:
WBC 13.3 10^3/uL (4.8-10.8) H 04/29/25 04:09
RBC 3.81 10^6/uL (4.70-6.10) L 04/29/25 04:09
Hgb 10.7 g/dL (13.0-18.0) L 04/29/25 04:09
Hct 33.5 % (39.0-52.0) L 04/29/25 04:09
Plt Count 297 10^3/uL (130-400) D 04/29/25 04:09
Sodium 147 mmol/L (135-145) H 04/29/25 04:09
Potassium 3.7 mmol/L (3.5-5.1) 04/29/25 04:09
Chloride 109 mmol/L (98-107) H 04/29/25 04:09
Carbon Dioxide 30 mmol/L (22-30) 04/29/25 04:09
BUN 20 mg/dl (9-20) 04/29/25 04:09
Creatinine 0.7 mg/dL (0.7-1.3) 04/29/25 04:09
eGFR > 60.00 04/29/25 04:09
Glucose 132 mg/dl (70-99) H 04/29/25 04:09
Calcium 9.0 mg/dl (8.4-10.2) 04/29/25 04:09
Phosphorus 2.7 mg/dl (2.5-4.5) 04/28/25 16:00
Albumin 4.0 g/dl (3.5-5.0) 04/28/25 03:32
Physical Exam
-
Vital Signs:
Vital Signs
Temp Pulse Resp BP Pulse Ox
99.1 F 65 15 130/87 95
04/29/25 07:43 04/29/25 10:00 04/29/25 10:00 04/29/25 10:00 04/29/25 10:00
Cardiovascular:: Regular rate and rhythm
Respiratory:: Bilateral: CTA
Lung Excursion:: Normal
Abdomen:: Nontender and Soft
Bowel Sounds:: Normal
Extremity Edema:: +1: Bilateral:
--- NOTE | 2025-04-29 11:50 | W.PN.UPDATE ---
Update Note
Progress Note Update
patient seen chart reviewed. mother at bedside . discussed with nursing. patient suffering from opiate wd. he was admitted as well w bilateral cellulitis lower extremity likely secondary to injecting /xylazine. he is at this point agreeing to
go to rehab directly from and recognizes that he will need keno terminal operator rx. he is no stranger to rehab having been in many facilities over the years longest sobriety was 18 months. he had been in an in pt program and then in a community residence
total six months. that program has since closed. he is one of four chidren. three of them struggle with addiction two to etoh and one to opiates. mom is very supportive but there is strain between sibs who do not look kindly upon kenyatta and resent
mother's support of him. no changes made in kenyatta's medications. at present he does not appear to be withdrawing. mother and kenyatta both feel he has made some improvement even since yesterday. he is using several of his prn's would watch that usage
in the next few days and start perhaps to taper some of those with addictive potential. will follow
--- NOTE | 2025-04-29 12:00 | PTCARENOTE ---
Reassessed the patient, denied pain, anxiety, and N/V, OOB to chair and ambulated in the hallway w/ a walker, on RA, encouraged PO intake, discontinued condom catheter, now using urinal.
--- NOTE | 2025-04-29 12:03 | WOUNDNOTE ---
WOC RN note: Confirmed can continue same local wound care with Dr. Sanchez.
--- NOTE | 2025-04-29 13:58 | W.PN.ID1 ---
Date of Service
Date of Service: April 29, 2025
Today's Communication
DC cefazolin.
Assessment / Plan
# BLE soft tissue necrotic wounds from Xylocaine inj
# IVDU withdrawal
# Reactive leukocytosis trending down
- Blood cultures neg to date x 48h
- DC cefazolin.
-Continue local wound care.
-Trend WBC
- HIV negative - informed patient.
- Hep C Ab positive.
HCV PCR pending.
Chief Complaint
-: Other (Wounds)
Subjective / Review of Systems
Mom at bedside. Pt feeling a little better.
Vital Signs / Physical Exam
Vital Signs
Vital Signs
Temp Pulse Resp BP Pulse Ox
98.8 F 82 15 130/80 95
04/29/25 11:07 04/29/25 13:35 04/29/25 10:00 04/29/25 13:35 04/29/25 10:00
Physical Exam
Constitutional: Comfortable
Cardiovascular: Regular Rate and S1/S2
Pulmonary: Clear
Gastrointestinal: Soft, Non Tender, Distended and Normal Bowel Sounds
Genito-Urinary: Negative CVA Tenderness
Extremities: Negative Edema
Wound: Other (BLE wounds with eschar softening up)
Neurological: AO x 3
Objective Data
Lab Data
Lab Results
04/29/25 04:09
04/29/25 04:09
Estimated Creat Clear > 125 ml/min 04/29/25 04:09
Lactic Acid Cancelled 04/27/25 01:15
Total Bilirubin 0.9 mg/dl (0.2-1.3) 04/28/25 03:32
AST 20 U/L (17-59) 04/28/25 03:32
ALT 13 U/L (0-50) 04/28/25 03:32
Alkaline Phosphatase 110 U/L (38-126) 04/28/25 03:32
Most recent labs reviewed.
Micro Results:
04/26/25 21:43 Blood Culture - Preliminary
Blood/Venous No Growth in 48 hours- Final report to follow
04/26/25 21:43 Blood Culture - Preliminary
Blood/Venous No Growth in 48 hours- Final report to follow
04/27/25 03:08 MRSA Screen - Final
Nose No Methicillin Resistant Staphylococcus aureus isolated.
--- NOTE | 2025-04-29 15:11 | CM ---
Spoke with Olga from [facility] concerning discharge plan for rehab. She has visited patient today and discussed treatment. She is also aware that patient will need wound care. She said she was of the understanding patient was to be transferred
to a different floor and when closer to discharge she will find a facility for patient. Patient remains on IV/AB.
--- NOTE | 2025-04-29 16:00 | PTCARENOTE ---
Reassessed the patient, resting comfortably in the recliner, changed B/L LE per wound care orders, noticed HR trending down to haris side after clonidine 0.3mg PO given, communicated w/ pharmacy and Dr. Damico, decreased clonidine to 0.2mg PO.
[2025-04-29] MEDS: LOVENOX 40 MG SC (17:40)
[2025-04-29] MEDS: ZANAFLEX 2 MG PO (17:51)
[2025-04-29] MEDS: TIGAN 200 MG IM (17:52)
--- NOTE | 2025-04-29 20:20 | PTCARENOTE ---
patient is A&Ox4 but drowsy. pt is on room air at 96%. pt is SR on monitor. NICCI midline infusing D5W @100mL/hr. no complaints at this time,
[2025-04-29 20:59] LABS: Blood Urea Nitrogen 23 mg/dl (9-20); Calcium 8.9 mg/dl (8.4-10.2); Carbon Dioxide 32 mmol/L (22-30); Chloride 104 mmol/L (98-107); Estimated Creatinine Clearance > 125 ml/min; Glucose 126 mg/dl (70-99); Potassium 3.4 mmol/L (3.5-5.1); Sodium 141 mmol/L (135-145); eGFR > 60.00
[2025-04-29] MEDS: CATAPRES 0.2 MG PO (21:34)
[2025-04-30] VITALS (14 sets, daily range): BP systolic 119–141; BP diastolic 72–89
[2025-04-30] MEDS: ROXICODONE 20 MG PO (04:47)
[2025-04-30 05:02] LABS: Hematocrit 32.8 % (39.0-52.0); Hemoglobin 10.8 g/dL (13.0-18.0); Mean Corp Hgb Conc. 32.9 g/dL (33.0-37.0); Mean Corpuscular Hgb 28.3 pg (27.0-31.0); Mean Corpuscular Volume 86.1 fL (80.0-94.0); Platelet Count 270 10^3/uL (130-400); Red Blood Cell Count 3.81 10^6/uL (4.70-6.10); Red Cell Dist. Width 12.3 % (11.5-14.5); White Blood Cell Count 9.5 10^3/uL (4.8-10.8)
[2025-04-30] MEDS: ANCEF 10 IV ×3 (05:02→22:07)
[2025-04-30] MEDS: CATAPRES 0.2 MG PO ×3 (05:02→22:07)
[2025-04-30 05:28] LABS: ALT (SGPT) < 10 U/L (0-50); AST (SGOT) 20 U/L (17-59); Albumin 3.5 g/dl (3.5-5.0); Alkaline Phosphatase 77 U/L (38-126); Blood Urea Nitrogen 22 mg/dl (9-20); Calcium 8.7 mg/dl (8.4-10.2); Carbon Dioxide 29 mmol/L (22-30); Chloride 106 mmol/L (98-107); Estimated Creatinine Clearance > 125 ml/min; Glucose 126 mg/dl (70-99); Magnesium 2.1 mg/dl (1.6-2.3); Phosphorus 2.8 mg/dl (2.5-4.5); Potassium 3.6 mmol/L (3.5-5.1); Sodium 140 mmol/L (135-145); Total Bilirubin 0.5 mg/dl (0.2-1.3); Total Protein 6.4 g/dl (6.3-8.2); eGFR > 60.00
[2025-04-30] MEDS: NICODERM TRANSDERMAL 14 MG TRANSDERM (07:29)
[2025-04-30] MEDS: HYDROPHOR 1 APPLIC TOPICAL (07:29)
[2025-04-30] MEDS: SUBUTEX 8 MG SL ×2 (07:29→20:23)
--- NOTE | 2025-04-30 09:18 | W.PN.NEPH.PH ---
Today's Communication / Plan
-
follow BMP
Assessment/Plan
-
Impression:
Hypernatremia
Cellulitis of lower extremity with skin necrosis
IV drug abuse
Opiate withdrawal
History of ADHD
Plan:
off iVF
Hypernatremia likely due to hypotonic fluid losses from vomiting with decreased oral intake
Follow BMP
will sign off
-
-
Date of Service: April 30, 2025
CC / HPI / ROS
-
Chief Complaint:
Hyponatremia
History of Present Illness:
Sodium slightly better at 140
BP stable high
eating well
Review of Systems:
No chest pain or shortness of breath
Labs
-
Labs:
WBC 9.5 10^3/uL (4.8-10.8) 04/30/25 04:52
RBC 3.81 10^6/uL (4.70-6.10) L 04/30/25 04:52
Hgb 10.8 g/dL (13.0-18.0) L 04/30/25 04:52
Hct 32.8 % (39.0-52.0) L 04/30/25 04:52
Plt Count 270 10^3/uL (130-400) 04/30/25 04:52
Sodium 140 mmol/L (135-145) 04/30/25 04:52
Potassium 3.6 mmol/L (3.5-5.1) 04/30/25 04:52
Chloride 106 mmol/L (98-107) 04/30/25 04:52
Carbon Dioxide 29 mmol/L (22-30) 04/30/25 04:52
BUN 22 mg/dl (9-20) H 04/30/25 04:52
Creatinine 0.6 mg/dL (0.7-1.3) L 04/30/25 04:52
eGFR > 60.00 04/30/25 04:52
Glucose 126 mg/dl (70-99) H 04/30/25 04:52
Calcium 8.7 mg/dl (8.4-10.2) 04/30/25 04:52
Phosphorus 2.8 mg/dl (2.5-4.5) 04/30/25 04:52
Albumin 3.5 g/dl (3.5-5.0) 04/30/25 04:52
Physical Exam
-
Vital Signs:
Vital Signs
Temp Pulse Resp BP Pulse Ox
98.9 F 47 18 131/79 96
04/30/25 03:02 04/30/25 06:00 04/30/25 06:00 04/30/25 06:00 04/30/25 06:00
Cardiovascular:: Regular rate and rhythm
Respiratory:: Bilateral: CTA
Lung Excursion:: Normal
Abdomen:: Nontender and Soft
Bowel Sounds:: Normal
Extremity Edema:: None: Bilateral:
--- NOTE | 2025-04-30 09:30 | WOUNDNOTE ---
WOC RN Note: Patient's Le wounds stable, eschar softening some. LE's appear less swollen. Patient sitting in recliner chair with Le's elevated. MOLLY Lozano changed his leg wounds. Current wound care appropriate. Will follow as needed.
--- NOTE | 2025-04-30 11:12 | W.PN.UPDATE ---
Update Note
Progress Note Update
patient seen chart reviewed. mother at bedside and when i left jaleel had come in to talk with him. patient is ambivalent about the two rehabs to which he has been referred. he feels that there will be clients there who are not motivated. tried to
impress upon him that there will be less motivated people in any rehab and it should be his mission to avoid those people and work his own program. mother joined in expressing her fears that if he were to come home it would only hasten his relapse
and demise. he maintained calm throughout the discussion which was a positive and he seemed to hear what we were saying. unfortunately the wounds on his leg do limit the rehabs who might accept him and this is a reality. he needs to address those
wounds and his addiction. jaleel will continue to discuss with him and hopefully we can together convince him that this is truly the right decision.
--- NOTE | 2025-04-30 12:29 | W.PN.HOSP.TC ---
Today's Communication/Plan
-
awating for rehab bed
Assessment / Plan
Assessment / Plan
30yo M with PMHx of IVDA came with b/l LE wounds after heroid injections with Xylazine. Managed for cellultitis. CT showed no complicated fluid collection, improving on Ancef. On Microdosing for withdrawal and tolerating it well. Agreeable for
inpatient drug rehab upon d/c
A/P:
#b/l LE cellultitis
CT withut abscess
GenSx evaluated: enzymatic debridement, may ultimately need I&D
ID follows: Ancef discontinued, cont local wound care
Bcx NTD
US neg for LE DVT
Wound care
#HEpC Ab pos
HepC viral load pending
outpatient ID or GI
#IVDA
counseled on cessation
On microdosing for withdrawal
Psyhciatry follows
[facility]
DVT ppx lovenox
Full code
I have spet at least 37min reviewing chart, test results, communication with consultants and providing direct patient care
Anticipated Discharge: Within 24 hours
Subjective/Interval History
-
Date of Service: April 30, 2025
Objective Data
-
Labs:
Laboratory Results
04/30/25
04:52
WBC 9.5
Hgb 10.8 L
Hct 32.8 L
Plt Count 270
Sodium 140
Potassium 3.6
Chloride 106
Carbon Dioxide 29
BUN 22 H
Creatinine 0.6 L
Glucose 126 H
Calcium 8.7
Total Bilirubin 0.5
AST 20
ALT < 10
Alkaline Phosphatase 77
Vital Signs:
Vital Signs
Temp Pulse Resp BP Pulse Ox
98.7 F 80 19 137/75 94
04/30/25 09:22 04/30/25 10:00 04/30/25 10:00 04/30/25 10:00 04/30/25 08:00
I&O
04/29/25 04/30/25 05/01/25
06:59 06:59 06:59
Intake Total 3192.5 / 3292.5 3680 / 3680 240 / 240
Output Total 350 / 350 600 / 600 150 / 150
Balance 2842.5 / 2942.5 3080 / 3080 90 / 90
Review of Systems
-
History Source: Patient
All other systems: Reviewed and negative
Physical Exam
-
General: No Apparent Distress
HEENT: Normocephalic
GI: Soft, Nontender and Nondistended
Musculoskeletal: Other (b/l souza dark wounds)
Neuro: Awake, Alert, Oriented and AO x 3
Psych: Calm
--- NOTE | 2025-04-30 13:06 | PTCARENOTE ---
report called to [address] [facility], transport to floor by volunteer with all belongings from room
[2025-04-30] MEDS: TORADOL 10 MG IV (13:44)
--- NOTE | 2025-04-30 13:58 | CM ---
[facility] has been accepted [facility]. No bed today. Possibly tomorrow, 05/01/25. BCARES involved and notified of acceptance. Contact at [facility] is SHAUN @ [phone] Ext [phone].
[2025-04-30] MEDS: LOVENOX 40 MG SC (17:24)
[2025-05-01] MEDS: ANCEF 10 IV ×3 (05:05→21:04)
[2025-05-01] MEDS: CATAPRES 0.2 MG PO ×3 (05:05→21:05)
[2025-05-01] MEDS: ROXICODONE 20 MG PO ×3 (05:14→19:55)
[2025-05-01 06:33] LABS: HCV Quant by NAAT IU/mL Not Detected; HCV Quant by NAAT Interp Not Detected (Not Detected); HCV Quant by NAAT Log IU/mL Not Detected log IU/mL
[2025-05-01 08:03] VITALS: BP 134/88
[2025-05-01] MEDS: HYDROPHOR 1 APPLIC TOPICAL (08:40)
--- NOTE | 2025-05-01 08:40 | W.PN.HOSP.TC ---
Today's Communication/Plan
-
D/C
Assessment / Plan
Assessment / Plan
30yo M with PMHx of IVDA came with b/l LE wounds after heroid injections with Xylazine. Managed for cellultitis. CT showed no complicated fluid collection, improving on Ancef. On Microdosing for withdrawal and tolerating it well. Was initially
managed in ICU due to concern for the need of Precedex drip. Wounds improved. Reasonable to complete 5 more days of oral Abx upon D/C. Accepted to [facility]. Agreeable for inpatient drug rehab upon d/c. Medically stable for discharge
A/P:
#b/l LE cellulitis
CT: Suspect mild cellulitis of the bilateral lower extremities as described. No loculated fluid collections bilaterally. Intact osseous structures bilaterally.
GenSx evaluated: enzymatic debridement, may ultimately need I&D
ID follows: Ancef discontinued, cont local wound care
Bcx NTD
US neg for LE DVT
Wound care: cont dry dressings. Outpatient wound care center/eventual GenSx eval for possible late debridement
#HEpC Ab pos
HepC viral load neg
Most likely previous exposure
#IVDA
counseled on cessation
On microdosing for withdrawal
Psyhciatry follows
Inpatient rehab: as per CM [facility] on [facility]
DVT ppx Lovenox
Full code
I have spet at least 37min reviewing chart, test results, communication with consultants and providing direct patient care
Anticipated Discharge: Today
Subjective/Interval History
-
Date of Service: May 01, 2025
Objective Data
-
Vital Signs:
Vital Signs
Temp Pulse Resp BP Pulse Ox
98.3 F 68 18 134/88 97
05/01/25 08:03 05/01/25 08:03 05/01/25 08:03 05/01/25 08:03 05/01/25 08:36
I&O
04/30/25 05/01/25 05/02/25
06:59 06:59 06:59
Intake Total 3680 / 3680 720 / 720
Output Total 600 / 600 150 / 150
Balance 3080 / 3080 570 / 570
Review of Systems
-
History Source: Patient
All other systems: Reviewed and negative
Physical Exam
-
General: No Apparent Distress
HEENT: Normocephalic
Cardiac: Regular Rhythm
GI: Soft, Nontender and Nondistended
Neuro: Awake, Alert, Oriented and AO x 3
Psych: Calm
[2025-05-01] MEDS: SUBUTEX 16 MG SL (08:41)
[2025-05-01] MEDS: NICODERM TRANSDERMAL 14 MG TRANSDERM (08:42)
--- NOTE | 2025-05-01 08:51 | W.DCSUMMARY ---
Addendum entered and electronically signed by Adrian Oneil MD 05/03/25 07:06:
dc date 05/02/25
Original Note:
Discharge Summary
Discharge Data
Date of Admission: 04/26/25
Date of Discharge: 05/01/25
-
Pending Results: No
Additional Pending Results:
30yo M with PMHx of IVDA came with b/l LE wounds after heroin injections with Xylazine. Managed for cellultitis. CT showed no complicated fluid collection, improving on Ancef. On Microdosing for withdrawal and tolerating it well. Was initially
managed in ICU due to concern for the need of Precedex drip. Wounds improved. Reasonable to complete 5 more days of oral Abx upon D/C. Accepted to [facility]. Agreeable for inpatient drug rehab upon d/c. Remained afebrile with normal WNC
>24h before d/c. Medically stable for discharge
I have spent at least 37min reviewing chart, test results, communication with consultants and providing direct patient care
Patient was managed for:
#b/l LE cellulitis
#HEpC Ab pos
#IVDA with withdrawal from opioid abuse
Discharge Plan
-
Patient Disposition: Other
Discharge Diagnosis/Procedures: Inpatient rehab
Diet: Regular
Activity Restrictions/Additional Instructions:
Wound Care Instructions
LE wounds-clean with saline or Vashe wound cleanser, Aquaphor ointment to surrounding skin, honey gel to necrotic tissue, Xeroform gauze, ABD pad, secure with Stockinet, change daily and as needed for drainage.
L anterior thigh necrotic wound-clean with saline or Vashe wound cleanser, honey gel, Xeroform gauze, cover with silicone border foam or ABD pad/stockinet, change daily and as needed for drainage.
Follow up with wound day care attendant or at wound care center call for an appointment.
Referrals:
Marla Nash PA-C [Family Provider, Family Practice]
Prescriptions:
New
cephalexin 500 mg capsule
500 mg PO Q8H Qty: 15 0RF
Discharge Orders:
Discharge Patient (As Directed); Ordered 05/01/25
Ordered By: Adrian Oneil
Discharge Date and Time
Print Language: ANGOLAN
--- NOTE | 2025-05-01 11:01 | W.PN.ID1 ---
Date of Service
Date of Service: May 01, 2025
Today's Communication
ID will sign off.
Assessment / Plan
# BLE soft tissue necrotic wounds from Xylocaine inj
-Continue local wound care.
-blood cx's neg.
- No need for abx.
# s/p IVDU withdrawal
#Leukocytosis Resolved
# HIV negative - informed patient.
# Hep C Ab positive, HCV RNA NEGATIVE.
- Either false+ Ab or previous Hep C infection that cleared. Informed pt of result.
ID will sign off.
Chief Complaint
-: Other (Wounds)
Subjective / Review of Systems
Feeling better.
Vital Signs / Physical Exam
Vital Signs
Vital Signs
Temp Pulse Resp BP Pulse Ox
98.3 F 68 18 134/88 97
05/01/25 08:03 05/01/25 08:03 05/01/25 08:03 05/01/25 08:03 05/01/25 08:36
Physical Exam
Constitutional: No Acute Distress and Comfortable
Pulmonary: Clear
Gastrointestinal: Soft, Non Tender and Non Distended
Objective Data
Lab Data
Lab Results
04/30/25 04:52
04/30/25 04:52
Estimated Creat Clear > 125 ml/min 04/30/25 04:52
Lactic Acid Cancelled 04/27/25 01:15
Total Bilirubin 0.5 mg/dl (0.2-1.3) 04/30/25 04:52
AST 20 U/L (17-59) 04/30/25 04:52
ALT < 10 U/L (0-50) 04/30/25 04:52
Alkaline Phosphatase 77 U/L (38-126) 04/30/25 04:52
Most recent labs reviewed.
Micro Results:
04/26/25 21:43 Blood Culture - Preliminary
Blood/Venous No Growth in 4 days- Final report to follow
04/26/25 21:43 Blood Culture - Preliminary
Blood/Venous No Growth in 4 days- Final report to follow
04/27/25 03:08 MRSA Screen - Final
Nose No Methicillin Resistant Staphylococcus aureus isolated.
--- NOTE | 2025-05-01 11:40 | CM ---
Chart reviewed. Patient to be discharged to [facility] when bed is available
CM spoke w/ Nancie/ONESIMO who shared that at this time [facility] does not have a higher level of care bed for patient and will be notified if they do today.
Patient has been calling [facility] himself as well for updates
Plan: [facility] once a bed is available
--- NOTE | 2025-05-01 13:47 | W.PN.UPDATE ---
Update Note
Progress Note Update
patient seen chart reviewed. discussed with nursing. mr renu had agreed to go to [facility] but no bed available today. hopefully he can be transferred over the weekend. mom not present today and patient was very willing to talk about his
life. there is a lot of addiction in the family. he spoke of mom's heavy drinking which seems to concern him. we talked about the ill effects of his own use on his body and mind. he really does seem to understand how crucial sobriety is for him at
this point and spoke of the times he overdosed and sustained he believes damage to his hearing and to his sight which has not fully abated. reiterated the concept that there will come a point of no return for him vis a vis health and well being if
he continues to use. he has a sponsor who has been supportive of him for many years when he has chosen to engage. he has already called him. i suggested he avail himself of any and all help when he is dc'ed from rehab. suggested a progression of in
patient rehab, then a sober house with iop participation then out patient rx with twelve step meetings. he did not disagree. will dc benadryl and hydroxyzine which he has not used since 04/28. do not see the need for any other psychotropics at
this time. will have psych look in on him tomorrow.
[2025-05-01] MEDS: FLUSH (NSS) 1 FLUSH IV (14:31)
[2025-05-01 15:50] VITALS: BP 132/87
--- NOTE | 2025-05-01 15:51 | PTCARENOTE ---
Pt AAO x3, BOLES well, OOB to BR; no c/o weakness/dizziness. VSS. Pt has (+) edema of arms and legs. On room air- pulse ox 98%, no SOB noted. Abd large, soft, aurelia PO; appetite fair. Voids in BR without difficulty. Bilat leg dsgs currently D/I.
Pt c/o pain in lower legs; moderate relief with PO Roxicodone. Resting in bed at present. Will continue to monitor.
[2025-05-01] MEDS: LOVENOX 40 MG SC (17:08)
[2025-05-01 23:14] VITALS: BP 146/82
[2025-05-02] MEDS: ROXICODONE 20 MG PO ×4 (02:48→18:24)
[2025-05-02] MEDS: CATAPRES 0.2 MG PO ×3 (05:38→21:17)
[2025-05-02] MEDS: ANCEF 10 IV ×3 (05:39→21:17)
[2025-05-02 07:10] VITALS: BP 146/89
[2025-05-02] MEDS: NICODERM TRANSDERMAL 14 MG TRANSDERM (09:32)
[2025-05-02] MEDS: HYDROPHOR 1 APPLIC TOPICAL (09:33)
[2025-05-02] MEDS: FLUSH (NSS) 1 FLUSH IV (09:34)
--- NOTE | 2025-05-02 09:41 | W.PN.HOSP.TC ---
Today's Communication/Plan
-
CHange dressing
CM informed that patient is medically stable for d/c to inpatient rehab
Assessment / Plan
Assessment / Plan
30yo M with PMHx of IVDA came with b/l LE wounds after heroid injections with Xylazine. Managed for cellultitis. CT showed no complicated fluid collection, improving on Ancef. On Microdosing for withdrawal and tolerating it well. Was initially
managed in ICU due to concern for the need of Precedex drip. Wounds improved. Reasonable to complete 5 more days of oral Abx upon D/C. Accepted to [facility]. Agreeable for inpatient drug rehab upon d/c. Medically stable for discharge
A/P:
#b/l LE cellulitis
CT: Suspect mild cellulitis of the bilateral lower extremities as described. No loculated fluid collections bilaterally. Intact osseous structures bilaterally.
GenSx evaluated: enzymatic debridement, may ultimately need I&D
ID follows: Ancef discontinued, cont local wound care
Bcx NTD
US neg for LE DVT
Wound care: cont dry dressings. Outpatient wound care center/eventual GenSx eval for possible late debridement
#HEpC Ab pos
HepC viral load neg
Most likely previous exposure
#IVDA
counseled on cessation
On microdosing for withdrawal
Psyhciatry follows
[facility]patient [facility]: [facility]
DVT ppx Lovenox
Full code
I have spet at least 37min reviewing chart, test results, communication with consultants and providing direct patient care
Anticipated Discharge: Today
Subjective/Interval History
-
Date of Service: May 02, 2025
Objective Data
-
Vital Signs:
Vital Signs
Temp Pulse Resp BP Pulse Ox
98.8 F 53 16 146/89 97
05/02/25 07:10 05/02/25 07:10 05/02/25 07:10 05/02/25 07:10 05/02/25 07:10
I&O
05/01/25 05/02/25 05/03/25
06:59 06:59 06:59
Intake Total 720 / 720 1100 / 1100
Output Total 150 / 150
Balance 570 / 570 1100 / 1100
Review of Systems
-
History Source: Patient
All other systems: Reviewed and negative
Physical Exam
-
General: No Apparent Distress
HEENT: Normocephalic
Respiratory: Clear to Auscultation
GI: Soft, Nontender, Nondistended and Other
Skin: Other (b/l LE wounds, no redness or purulence)
Neuro: Awake, Alert, Oriented and AO x 3
Psych: Calm
[2025-05-02] MEDS: SUBUTEX 16 MG SL (10:31)
[2025-05-02] MEDS: FLUSH (NSS) 2 FLUSH IV (14:09)
[2025-05-02 15:00] VITALS: BP 158/86
--- NOTE | 2025-05-02 15:18 | W.PN.UPDATE ---
Update Note
Progress Note Update
Pt seen & evaluated at bedside, chart reviewed. Sitting in bed comfortably, does report ongoing pain in legs but manageable. Maintaining well on buprenorphine 16mg daily and clonidine 0.2mg TID, does still experience some withdrawal but says it is
manageable as is. Remains agreeable to D&A tx at rehab facility. Pleasant and cooperative. Denies acute depression. Trying to stay busy while waiting for bed availability.
No psychotropic changes at this time - pt remains agreeable to d&a tx facility, dispo is currently pending bed availability
[2025-05-02] MEDS: LOVENOX 40 MG SC (18:25)
[2025-05-02 23:22] VITALS: BP 130/76
[2025-05-03] MEDS: ZANAFLEX 2 MG PO (03:24)
[2025-05-03] MEDS: ROXICODONE 20 MG PO ×5 (03:25→22:44)
[2025-05-03] MEDS: CATAPRES 0.2 MG PO ×3 (05:26→21:15)
[2025-05-03] MEDS: ANCEF 10 IV ×3 (05:26→21:16)
[2025-05-03] MEDS: NICODERM TRANSDERMAL 14 MG TRANSDERM (07:55)
[2025-05-03] MEDS: HYDROPHOR 1 APPLIC TOPICAL (07:56)
[2025-05-03] MEDS: FLUSH (NSS) 1 FLUSH IV (07:56)
[2025-05-03 08:48] VITALS: BP 131/85
[2025-05-03] MEDS: SUBUTEX 16 MG SL (09:49)
--- NOTE | 2025-05-03 09:52 | CM ---
atm manager reviewed patient's chart and plan is for patient to transfer to [facility] when stable, patient needs a D&A facility that will provide Subutex and manage patient's wounds. Call placed to Nancie [phone]
at [facility] and she spoke with [facility] this am and there are still no beds available.
Plan; To follow up for placed at [facility].
--- NOTE | 2025-05-03 11:54 | W.PN.HOSP.TC ---
Today's Communication/Plan
-
remains stable for dc pending acceptance in inpatient rehab -CM aware
Assessment / Plan
Assessment / Plan
30yo M with PMHx of IVDA came with b/l LE wounds after heroid injections with Xylazine. Managed for cellultitis. CT showed no complicated fluid collection, improving on Ancef. On Microdosing for withdrawal and tolerating it well. Was initially
managed in ICU due to concern for the need of Precedex drip. Wounds improved. Reasonable to complete 5 more days of oral Abx upon D/C. Accepted to [facility]. Agreeable for inpatient drug rehab upon d/c. Medically stable for discharge
A/P:
#b/l LE cellulitis
CT: Suspect mild cellulitis of the bilateral lower extremities as described. No loculated fluid collections bilaterally. Intact osseous structures bilaterally.
GenSx evaluated: enzymatic debridement, may ultimately need I&D
ID follows: Ancef discontinued, cont local wound care
Bcx NTD
US neg for LE DVT
Wound care: cont dry dressings. Outpatient wound care center/eventual GenSx eval for possible late debridement
#HEpC Ab pos
HepC viral load neg
Most likely previous exposure
#IVDA
counseled on cessation
On microdosing for withdrawal
Psyhciatry follows
Inpatient rehab: as per [facility]
DVT ppx Lovenox
Full code
I have spet at least 37min reviewing chart, test results, communication with consultants and providing direct patient care
Anticipated Discharge: Today
Subjective/Interval History
-
Date of Service: May 03, 2025
Objective Data
-
Vital Signs:
Vital Signs
Temp Pulse Resp BP Pulse Ox
98.6 F 78 18 131/85 97
05/03/25 08:48 05/03/25 08:48 05/03/25 08:48 05/03/25 08:48 05/03/25 08:48
I&O
05/02/25 05/03/25 05/04/25
06:59 06:59 06:59
Intake Total 1100 / 1100 600 / 600
Balance 1100 / 1100 600 / 600
Review of Systems
-
History Source: Patient
All other systems: Reviewed and negative
Physical Exam
-
General: No Apparent Distress
HEENT: Normocephalic
Cardiac: Regular Rhythm
GI: Soft, Nontender and Nondistended
Neuro: Awake, Alert and AO x 3
Psych: Calm
--- NOTE | 2025-05-03 11:56 | W.PN.UPDATE ---
Update Note
Progress Note Update
will complete 7 days IV Ancef - reasonable not to prescribe outpatient extension as per ID recommendation to stop Abx
[2025-05-03 15:14] VITALS: BP 140/95
[2025-05-03] MEDS: FLUSH (NSS) 2 FLUSH IV (15:17)
[2025-05-03] MEDS: LOVENOX 40 MG SC (18:01)
[2025-05-03 23:03] VITALS: BP 141/89
[2025-05-04] MEDS: ZANAFLEX 2 MG PO (04:42)
[2025-05-04] MEDS: ROXICODONE 20 MG PO ×5 (04:43→21:06)
[2025-05-04] MEDS: CATAPRES 0.2 MG PO ×3 (05:52→20:23)
[2025-05-04] MEDS: ANCEF 10 IV ×3 (05:52→20:24)
[2025-05-04 08:09] VITALS: BP 140/81
[2025-05-04] MEDS: NICODERM TRANSDERMAL 14 MG TRANSDERM (08:28)
[2025-05-04] MEDS: HYDROPHOR 1 APPLIC TOPICAL (08:29)
[2025-05-04] MEDS: SUBUTEX 16 MG SL (08:29)
--- NOTE | 2025-05-04 12:56 | W.PN.HOSP.TC ---
Today's Communication/Plan
-
Assessment / Plan
Assessment / Plan
NAD
Scleral Anicteric
MMM
No JVD
CTABL
RRR, S1/S2
Soft, NT, ND, BS+
Warm, Dry
Bilateral lower extremities wrapped
AAOx3
Calm
#b/l LE cellulitis
CT: Suspect mild cellulitis of the bilateral lower extremities as described. No loculated fluid collections bilaterally. Intact osseous structures bilaterally.
GenSx evaluated: enzymatic debridement, may ultimately need I&D
ID follows: Ancef discontinued, cont local wound care
Bcx NTD
US neg for LE DVT
Wound care: cont dry dressings. Outpatient wound care center/eventual GenSx eval for possible late debridement
#HEpC Ab pos
HepC viral load neg
Most likely previous exposure
#IVDA
counseled on cessation
On microdosing for withdrawal
Psyhciatry follows
Inpatient rehab: [facility] per [facility]25
DVT ppx Lovenox
Full code
Plan for discharge to [facility] once bed available.
Case management updated at 8:45 in the morning on 05/04/2025 awaiting to hear back via [place] connect
Anticipated Discharge: Today
Subjective/Interval History
-
Date of Service: May 04, 2025
Was seen and examined. No new complaints. No acute overnight events.
Objective Data
-
Vital Signs:
Vital Signs
Temp Pulse Resp BP Pulse Ox
98.8 F 79 18 140/81 97
05/04/25 08:09 05/04/25 08:09 05/04/25 08:09 05/04/25 08:09 05/04/25 09:45
I&O
05/03/25 05/04/25 05/05/25
06:59 06:59 06:59
Intake Total 600 / 600 720 / 720
Balance 600 / 600 720 / 720
--- NOTE | 2025-05-04 15:11 | CM ---
Placed a call to Nancie at [facility] who has been assigned to patient. Number in previous CM note. She stated that she spoke with someone from [facility] in admissions this am and today, there still is no bed availability. She stated that she did call
patient to update and he confirmed understanding.
Plan: Case management will continue to follow and assist with discharge planning. [facility] upon bed availability.
[2025-05-04 15:46] VITALS: BP 129/86
[2025-05-04] MEDS: LOVENOX 40 MG SC (17:12)
[2025-05-04 20:47] VITALS: BP 135/87
--- NOTE | 2025-05-04 21:15 | PTCARENOTE ---
BCARES at bedside informing patient of discharge to [facility]. TT FILM RECORDIST [place] and spoke with Nursing Heating And Ventilating Drafter Leslie to update and verify patient will be transported via [employer] through [facility]. All discharge
documentation completed and reviewed with patient. Patient escorted to ED via wheelchair with PCT and BCARES.
--- NOTE | 2025-05-05 11:18 | W.DCSUMMARY ---
Discharge Summary
Discharge Data
Date of Admission: 04/26/25
Date of Discharge: 05/04/25
-
Pending Results: No
Hospital Course
30-year-old male with past medical history significant for IV drug abuse presenting to the emergency department with worsening bilateral lower extremity pain tenderness and redness as well as swelling that started about 2 to 3 days ago.
Patient reports injecting directly into his lower extremities. He says he does have multiple ulcers and lesions in lower extremities including tach and legs for several weeks. His most recent injection was today. He is developing some eschar
around his legs. Over the last 2 days he noticed significant worsening of his pain. Parents reports that he has had these lesions for several weeks now. Patient himself denies fevers or chills. He only reports a worsening tenderness.
Patient reports that he uses about 30 bags of fentanyl daily. He also uses strength. He states that the tests supplies for xylazine and he has had them in the past. His last use of fentanyl was this morning.
In the emergency department he was afebrile, blood pressure was 130/80 with a pulse of 130 and satting 100% on room air. CBC was unremarkable with white count of 10.7 hemoglobin 12.5 and platelet count of 293. Electrolytes were normal, BUN and
creatinine were normal.
#b/l LE cellulitis
CT: Suspect mild cellulitis of the bilateral lower extremities as described. No loculated fluid collections bilaterally. Intact osseous structures bilaterally.
GenSx evaluated: enzymatic debridement, may ultimately need I&D
ID follows: Ancef discontinued, cont local wound care
Bcx NTD
US neg for LE DVT
Wound care: cont dry dressings. Outpatient wound care center/eventual GenSx eval for possible late debridement
#HEpC Ab pos
HepC viral load neg
Most likely previous exposure
#IVDA
counseled on cessation
On microdosing for withdrawal
Psyhciatry follows
Inpatient rehab: [facility] on [facility]25
DVT ppx Lovenox
Full code
Plan for discharge to [facility] once bed available.
Case management updated at 8:45 in the morning on 05/04/2025 awaiting to hear back via [place] connect
Anticipated Discharge: Today
Discharge Plan
-
Patient Disposition: Other
Discharge Diagnosis/Procedures: Inpatient rehab
Diet: Regular
Activity Restrictions/Additional Instructions:
Wound Care Instructions
LE wounds-clean with saline or Vashe wound cleanser, Aquaphor ointment to surrounding skin, honey gel to necrotic tissue, Xeroform gauze, ABD pad, secure with Stockinet, change daily and as needed for drainage.
L anterior thigh necrotic wound-clean with saline or Vashe wound cleanser, honey gel, Xeroform gauze, cover with silicone border foam or ABD pad/stockinet, change daily and as needed for drainage.
Follow up with wound managed care specialist or at wound care center call for an appointment.
Referrals:
Marla Nash PA-C [Family Provider, Family Practice]
Discharge Orders:
Discharge Patient (As Directed); Ordered 05/01/25
Ordered By: Adrian Oneil
Discharge Date and Time
Discharge Date/Time: 05/04/25 21:13
Print Language: DJIBOUTIAN
== END 2025-05-04 21:13 | disposition other institution (70) | DRG 897 ==
LOC: 4 EAST ACU 23:30
PROVIDERS: Hospitalist; ADMITTING PHYSICIAN Internal Medicine; ATTENDING PHYSICIAN Hospitalist; CONSULT PHYSICIAN Internal Medicine Critical Care Medicine; CONSULT PHYSICIAN Psychiatry & Neurology Psychiatry; CONSULT PHYSICIAN Specialist; CONSULT PHYSICIAN Surgery; EMERGENCY PHYSICIAN Emergency Medicine; FAMILY PHYSICIAN Physician Assistant; OTHER PHYSICIAN Internal Medicine Infectious Disease
DX: F11.23 Opioid dependence with withdrawal (principal); L03.115 Cellulitis of right lower limb; I96 Gangrene, not elsewhere classified; E87.0 Hyperosmolality and hypernatremia; L03.116 Cellulitis of left lower limb; F17.200 Nicotine dependence, unspecified, uncomplicated; F90.9 Attention-deficit hyperactivity disorder, unspecified type; Z88.1 Allergy status to other antibiotic agents; F32.A Depression, unspecified; F41.9 Anxiety disorder, unspecified; K21.9 Gastro-esophageal reflux disease without esophagitis; Z80.1 Family history of malignant neoplasm of trachea, bronchus and lung; Z80.8 Family history of malignant neoplasm of other organs or systems; Z82.49 Family history of ischemic heart disease and other diseases of the circulatory system; E87.6 Hypokalemia; K59.00 Constipation, unspecified; D72.829 Elevated white blood cell count, unspecified
CPT/HCPCS: 71045; 73590; 73701; 80048; 80053; 80076; 80306; 80307; 82077; 82248; 83605; 83735; 83935; 84100; 85025; 85027; 86803; 87040; 87070; 87389; 87522; 93005; 93970; 96365; 96366; 97163; 99285; 99406; Q9967